=== PATIENT | female | born 1970 | race American Indian/Alaskan Native ===

== ENCOUNTER 2016-10-08 00:59 | Emergency (ER) | payer OTHER, MEDICAID ==
[2016-10-08] MEDS ORDERED: TYLENOL ONE (02:07)
[2016-10-08] MEDS: TYLENOL PO ONE ×2 (02:07→09:16)
[2016-10-08 03:12] LABS: Basophils % (Auto) 0.7 % (0.0-1.8); Eosinophils % (Auto) 1.4 % (0.0-4.3); Hematocrit 27.9 % (30.3-42.9); Hemoglobin 7.8 gm/dl (10.1-14.3); Mean Corpuscular HGB Conc 28 % (30-34); Mean Corpuscular Hemoglobin 21 pg (28-32); Mean Corpuscular Volume 74 fl (79-97); Platelet Count 261 K/mm3 (140-440); Red Blood Count 3.79 M/mm3 (3.65-5.03); Red Cell Distribution Width 20.8 % (13.2-15.2); White Blood Count 7.5 K/mm3 (4.5-11.0)
[2016-10-08 03:25] LABS: Anion Gap 20 mmol/L; BUN/Creatinine Ratio 14.28; Blood Urea Nitrogen 10 mg/dL (7-17); Calcium 9.3 mg/dL (8.4-10.2); Carbon Dioxide 18 mmol/L (22-30); Chloride 97.7 mmol/L (98-107); Glucose 108 mg/dL (65-100); Sodium 132 mmol/L (137-145)
[2016-10-08 04:32] LABS: Bacteria,Urine 1+ /HPF (Negative); Bilirubin,Urine NEG (Negative); Blood,Urine NEG (Negative); Ketones,Urine TR mg/dL (Negative); Leukocyte Esterase,Urine NEG (Negative); Mucus,Urine 3+ /HPF; Nitrite,Urine NEG (Negative)
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
[2016-10-08] MEDS ORDERED: TORADOL IM ONE (08:38)
[2016-10-08 09:06] VITALS: BP 126/79
== END 2016-10-08 09:28 | disposition home or self-care (01) ==
LOC: ED 00:59
DX: S13.4XXA Sprain of ligaments of cervical spine, initial encounter (principal); R51 Headache; M54.9 Dorsalgia, unspecified; E03.9 Hypothyroidism, unspecified; F17.210 Nicotine dependence, cigarettes, uncomplicated; Z88.8 Allergy status to other drugs, medicaments and biological substances; V89.2XXA Person injured in unspecified motor-vehicle accident, traffic, initial encounter; Y93.89 Activity, other specified; Y92.89 Other specified places as the place of occurrence of the external cause; Y99.8 Other external cause status
CPT/HCPCS: 36415; 80048; 81001; 84703; 85025; 99283

== ENCOUNTER 2018-12-16 01:13 | Emergency (ER) | payer MEDICAID ==
[2018-12-16] MEDS ORDERED: HYDROcodone/ACETAMINOPHEN 5-325 MG TAB PO ONE (01:23)
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
[2018-12-16 02:04] LABS: Basophils % (Auto) 0.8 % (0.0-1.8); Eosinophils # (Auto) 0.1 K/mm3 (0.0-0.4); Eosinophils % (Auto) 1.1 % (0.0-4.3); Hematocrit 42.7 % (30.3-42.9); Hemoglobin 13.9 gm/dl (10.1-14.3); Lymphocytes # (Auto) 1.7 K/mm3 (1.2-5.4); Lymphocytes % (Auto) 29.2 % (13.4-35.0); Mean Corpuscular HGB Conc 33 % (30-34); Mean Corpuscular Volume 96 fl (79-97); Monocytes # (Auto) 0.7 K/mm3 (0.0-0.8); Monocytes % (Auto) 12.3 % (0.0-7.3); Platelet Count 248 K/mm3 (140-440); Red Blood Count 4.43 M/mm3 (3.65-5.03); Red Cell Distribution Width 16.2 % (13.2-15.2)
[2018-12-16 02:24] LABS: BUN/Creatinine Ratio 16; Blood Urea Nitrogen 14 mg/dL (7-17); Calcium 9.8 mg/dL (8.4-10.2); Hemolysis Index 0
--- NOTE | 2018-12-16 02:37 | XRay Report ---
CHEST 1 VIEW 12/16/2018 1:51 AM INDICATION / CLINICAL INFORMATION: Chest Pain. COMPARISON: 06/07/13 FINDINGS: SUPPORT DEVICES: None. HEART / MEDIASTINUM: Heart is upper normal size for AP portable technique with left ventricular confi guration. LUNGS / PLEURA: Mild elevation of the right hemidiaphragm is new. Linear atelectasis in the right ayo g base. No acute airspace disease. No pneumothorax. ADDITIONAL FINDINGS: No significant additional findings. IMPRESSION: 1. Right lung base atelectasis. Otherwise, no acute findings. Signer Name: Solomon Scott MD Signed: 12/16/2018 2:32 AM Workstation Name: [id number]
[2018-12-16] MEDS ORDERED: MORPHINE 4 MG/1 ML INJ IV ONE (03:48)
[2018-12-16] MEDS ORDERED: dexAMETHasone 20 MG/5 ML VIAL IV ONE (03:48)
[2018-12-16] MEDS ORDERED: ONDANSETRON 4 MG/2 ML INJ IV ONE (03:49)
[2018-12-16 04:43] VITALS: BP 136/93
== END 2018-12-16 06:00 | disposition home or self-care (01) ==
LOC: ED 01:13
DX: R07.89 Other chest pain (principal); R20.0 Anesthesia of skin; R06.02 Shortness of breath; F17.200 Nicotine dependence, unspecified, uncomplicated; I11.0 Hypertensive heart disease with heart failure; I50.9 Heart failure, unspecified; Z86.2 Personal history of diseases of the blood and blood-forming organs and certain disorders involving the immune mechanism; Z79.899 Other long term (current) drug therapy; Z88.8 Allergy status to other drugs, medicaments and biological substances
CPT/HCPCS: 36415; 71045; 80048; 84484; 85025; 85379; 93005; 93010; 96374; 96375; 99285; J1100; J2270; J2405

== ENCOUNTER 2019-05-11 08:17 | Emergency (ER) | payer MEDICAID ==
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
[2019-05-11 11:00] LABS: Bilirubin,Urine NEG (Negative); Blood,Urine NEG (Negative); Color,Urine Yellow (Yellow); Mucus,Urine FEW /HPF; Protein,Urine <15 mg/dL mg/dL (Negative); Urobilinogen,Urine < 2.0 mg/dL (<2.0)
[2019-05-11 11:01] LABS: Basophils # (Auto) 0.1 K/mm3 (0.0-0.1); Basophils % (Auto) 1.7 % (0.0-1.8); Eosinophils # (Auto) 0.1 K/mm3 (0.0-0.4); Eosinophils % (Auto) 1.5 % (0.0-4.3); Hemoglobin 13.4 gm/dl (10.1-14.3); Lymphocytes # (Auto) 2.2 K/mm3 (1.2-5.4); Lymphocytes % (Auto) 33.3 % (13.4-35.0); Mean Corpuscular HGB Conc 32 % (30-34); Mean Corpuscular Volume 89 fl (79-97); Monocytes # (Auto) 0.6 K/mm3 (0.0-0.8); Monocytes % (Auto) 9.7 % (0.0-7.3); Platelet Count 302 K/mm3 (140-440); Red Blood Count 4.74 M/mm3 (3.65-5.03); Red Cell Distribution Width 19.1 % (13.2-15.2)
[2019-05-11 11:04] LABS: HCG Qualitative,Urine Negative (Negative)
[2019-05-11 11:11] LABS: Alanine Aminotransferase 14 units/L (7-56); Albumin 4.4 g/dL (3.9-5); BUN/Creatinine Ratio 12; Blood Urea Nitrogen 12 mg/dL (7-17); Calcium 9.8 mg/dL (8.4-10.2); Hemolysis Index 20
--- NOTE | 2019-05-11 12:23 | XRay Report ---
CHEST 2 VIEWS INDICATION / CLINICAL INFORMATION: sob and chest pain. COMPARISON: 12/16/2018 FINDINGS: SUPPORT DEVICES: None. HEART / MEDIASTINUM: Upper limits of normal in size LUNGS / PLEURA: There are linear parenchymal opacities noted in the right lung base similar to the pr evious study characteristic of linear atelectasis or scar. Clinical clips are noted. The upper lung zones are clear. .No pneumothorax. ADDITIONAL FINDINGS: No significant additional findings. IMPRESSION: 1. No significant change. Signer Name: Tanvir Linda MD Signed: 05/11/2019 12:19 PM Workstation Name: [id number]
[2019-05-11] MEDS ORDERED: ACETAMINOPHEN 500 MG TAB PO ONE (12:55)
[2019-05-11] MEDS ORDERED: FUROSEMIDE 20 MG TAB PO ONE (12:56)
[2019-05-11 16:29] VITALS: BP 158/103
== END 2019-05-11 17:07 | disposition home or self-care (01) ==
LOC: ED 08:17
DX: I11.0 Hypertensive heart disease with heart failure (principal); I50.9 Heart failure, unspecified; E03.9 Hypothyroidism, unspecified; D64.9 Anemia, unspecified; F17.200 Nicotine dependence, unspecified, uncomplicated; Z98.890 Other specified postprocedural states; Z79.899 Other long term (current) drug therapy; Z88.8 Allergy status to other drugs, medicaments and biological substances
CPT/HCPCS: 36415; 71046; 80053; 81001; 81025; 83880; 84484; 85025; 93005; 93010

== ENCOUNTER 2020-01-03 01:31 | Emergency (ER) | payer MEDICAID ==
[2020-01-03] MEDS ORDERED: ASPIRIN 325 MG TAB PO ONE (03:35)
[2020-01-03 04:08] LABS: Basophils # (Auto) 0.1 K/mm3 (0.0-0.1); Eosinophils # (Auto) 0.1 K/mm3 (0.0-0.4); Eosinophils % (Auto) 1.4 % (0.0-4.3); Hemoglobin 13.5 gm/dl (10.1-14.3); Lymphocytes # (Auto) 2.3 K/mm3 (1.2-5.4); Lymphocytes % (Auto) 38.2 % (13.4-35.0); Mean Corpuscular HGB Conc 34 % (30-34); Mean Corpuscular Volume 87 fl (79-97); Monocytes # (Auto) 0.7 K/mm3 (0.0-0.8); Monocytes % (Auto) 11.5 % (0.0-7.3); Platelet Count 263 K/mm3 (140-440); Red Blood Count 4.61 M/mm3 (3.65-5.03); Red Cell Distribution Width 16.8 % (13.2-15.2)
--- NOTE | 2020-01-03 04:14 | XRay Report ---
CHEST 1 VIEW INDICATION / CLINICAL INFORMATION: Chest Pain. COMPARISON: 05/11/2019 FINDINGS: SUPPORT DEVICES: None. HEART / MEDIASTINUM: No significant abnormality. LUNGS / PLEURA: There is linear scar in the right base. There is elevation of the right hemidiaphragm .. No pneumothorax. ADDITIONAL FINDINGS: No significant additional findings. IMPRESSION: 1. No significant change. Signer Name: Tanvir Linda MD Signed: 01/03/2020 4:10 AM Workstation Name: [id number]
[2020-01-03 04:25] LABS: Blood Urea Nitrogen 12 mg/dL (7-17); Hemolysis Index 5
[2020-01-03 04:27] LABS: BUN/Creatinine Ratio 20
[2020-01-03] MEDS ORDERED: MORPHINE 4 MG/1 ML INJ IV ONE (05:34)
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
[2020-01-03] MEDS ORDERED: traMADol 50 MG TAB PO ONE (07:23)
[2020-01-03] MEDS ORDERED: ONDANSETRON 4 MG ODT TAB PO ONE (07:23)
[2020-01-03] MEDS ORDERED: amLODIPine 5 MG TAB PO ONE (07:23)
[2020-01-03 08:53] VITALS: BP 146/89
== END 2020-01-03 09:45 | disposition home or self-care (01) ==
LOC: ED 01:31
DX: E03.9 Hypothyroidism, unspecified (principal); D64.9 Anemia, unspecified; R51.9 Headache, unspecified; R07.89 Other chest pain; I11.0 Hypertensive heart disease with heart failure; I50.9 Heart failure, unspecified; F17.200 Nicotine dependence, unspecified, uncomplicated; Z88.8 Allergy status to other drugs, medicaments and biological substances; Z79.899 Other long term (current) drug therapy; Z98.890 Other specified postprocedural states
CPT/HCPCS: 36415; 71045; 80048; 84443; 84484; 85025; 93005; 96374; 99284; J2270; Q0162

== ENCOUNTER 2020-02-23 17:46 | Emergency (ER) | payer MEDICAID ==
[2020-02-23 19:21] VITALS: BP 148/89
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
[2020-02-23 19:52] LABS: Basophils # (Auto) 0.1 K/mm3 (0.0-0.1); Basophils % (Auto) 1.4 % (0.0-1.8); Eosinophils # (Auto) 0.1 K/mm3 (0.0-0.4); Eosinophils % (Auto) 1.7 % (0.0-4.3); Lymphocytes # (Auto) 2.6 K/mm3 (1.2-5.4); Lymphocytes % (Auto) 49.2 % (13.4-35.0); Mean Corpuscular HGB Conc 34 % (30-34); Mean Corpuscular Volume 89 fl (79-97); Monocytes # (Auto) 0.4 K/mm3 (0.0-0.8); Monocytes % (Auto) 8.5 % (0.0-7.3); Platelet Count 252 K/mm3 (140-440); Red Blood Count 4.63 M/mm3 (3.65-5.03); Red Cell Distribution Width 19.2 % (13.2-15.2)
[2020-02-23 20:04] LABS: Alanine Aminotransferase 27 units/L (7-56); BUN/Creatinine Ratio 9; Blood Urea Nitrogen 7 mg/dL (7-17); Calcium 9.8 mg/dL (8.4-10.2); Hemolysis Index 12
--- NOTE | 2020-02-23 20:05 | Cat Scan Report ---
CT head/brain wo con INDICATION / CLINICAL INFORMATION: 49 years Female; headache, blurry vision, dizziness. TECHNIQUE: Routine CT head without contrast. All CT scans at this location are performed using CT dos e reduction for ALARA by means of automated exposure control. COMPARISON: None. FINDINGS: BRAIN / INTRACRANIAL CONTENTS: No acute hemorrhage, mass effect, midline shift, hydrocephalus, or acu te, large territorial infarct. No signs of significant atrophy or chronic infarct. Mild, nonspecific white matter disease seen, with most prevalent findings in the periventricular and deep white matter near the atrium of the left lateral ventricle. CRANIOCERVICAL JUNCTION: No significant abnormality. ORBITS: No significant abnormality of visualized orbits. SINUSES / MASTOIDS: No significant abnormality in the visualized paranasal sinuses or mastoid air goran ls. ADDITIONAL FINDINGS: None. IMPRESSION: 1. No focal mass, hemorrhage, hydrocephalus, or acute, large territorial infarct. Signer Name: Checo Dumas MD, III Signed: 02/23/2020 8:01 PM Workstation Name: [facility]ENTERNeozoneATLANTIC[id number]
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
[2020-02-23 21:21] LABS: Bilirubin,Urine NEG (Negative); Blood,Urine NEG (Negative); Color,Urine Yellow (Yellow); Mucus,Urine 3+ /HPF; Protein,Urine <15 mg/dL mg/dL (Negative); Urobilinogen,Urine < 2.0 mg/dL (<2.0)
[2020-02-23] MEDS ORDERED: BUTALB/ACETAMINOPHEN/CAFFEINE TAB PO ONE (21:47)
[2020-02-23] MEDS ORDERED: MECLIZINE 25 MG TAB PO ONE (21:47)
[2020-02-23] MEDS ORDERED: ONDANSETRON 4 MG ODT TAB PO ONE (23:02)
[2020-02-23] MEDS ORDERED: ONDANSETRON 4 MG ODT TAB ONE (23:02)
[2020-02-23] MEDS ORDERED: DEXAMETHASONE 4 MG TAB PO ONE (23:35)
== END 2020-02-23 23:50 | disposition home or self-care (01) ==
LOC: ED 17:46
DX: H81.10 Benign paroxysmal vertigo, unspecified ear (principal); G44.309 Post-traumatic headache, unspecified, not intractable; Z76.0 Encounter for issue of repeat prescription; I11.0 Hypertensive heart disease with heart failure; I50.9 Heart failure, unspecified; F17.200 Nicotine dependence, unspecified, uncomplicated; Z98.890 Other specified postprocedural states; Z79.899 Other long term (current) drug therapy; Z88.8 Allergy status to other drugs, medicaments and biological substances
CPT/HCPCS: 36415; 70450; 80053; 81001; 82550; 83735; 83880; 84439; 84443; 84484; 85025; 85379; 93005; 99284; J8540; Q0162

== ENCOUNTER 2020-06-19 09:41 | Emergency (ER) | payer MEDICAID ==
[2020-06-19] MEDS ORDERED: ASPIRIN 325 MG TAB PO ONE (09:50)
--- NOTE | 2020-06-19 10:23 | XRay Report ---
CHEST 2 VIEWS INDICATION / CLINICAL INFORMATION: chest pain. COMPARISON: 01/03/2020 FINDINGS: SUPPORT DEVICES: None. HEART / MEDIASTINUM: No significant abnormality. LUNGS / PLEURA: Mild increased density in the right lower lung with elevation right hemidiaphragm. No pneumothorax. ADDITIONAL FINDINGS: No significant additional findings. IMPRESSION: 1. Right lower lung atelectasis persists. Mild elevation the right hemidiaphragm. Signer Name: Ronan Ventura MD Signed: 06/19/2020 10:19 AM Workstation Name: [employer]
[2020-06-19 10:59] LABS: Basophils % (Auto) 0.8 % (0.0-1.8); Eosinophils # (Auto) 0.1 K/mm3 (0.0-0.4); Eosinophils % (Auto) 1.2 % (0.0-4.3); Hematocrit 40.2 % (30.3-42.9); Hemoglobin 12.9 gm/dl (10.1-14.3); Lymphocytes # (Auto) 1.7 K/mm3 (1.2-5.4); Lymphocytes % (Auto) 31.7 % (13.4-35.0); Mean Corpuscular HGB Conc 32 % (30-34); Mean Corpuscular Volume 95 fl (79-97); Monocytes # (Auto) 0.5 K/mm3 (0.0-0.8); Monocytes % (Auto) 8.8 % (0.0-7.3); Platelet Count 250 K/mm3 (140-440); Red Blood Count 4.25 M/mm3 (3.65-5.03); Red Cell Distribution Width 17.5 % (13.2-15.2)
[2020-06-19 11:15] LABS: Alanine Aminotransferase 39 units/L (7-56); Albumin 3.8 g/dL (3.9-5); BUN/Creatinine Ratio 10; Blood Urea Nitrogen 8 mg/dL (7-17); Calcium 9.5 mg/dL (8.4-10.2); Hemolysis Index 1
[2020-06-19] MEDS ORDERED: LOSARTAN 50 MG TAB PO ONE (21:13)
[2020-06-19] MEDS ORDERED: FUROSEMIDE 20 MG TAB PO ONE (21:13)
[2020-06-19] MEDS ORDERED: HYDROcodone/ACETAMINOPHEN 5-325 MG TAB PO ONE (21:13)
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
[2020-06-19 22:14] VITALS: BP 165/109
--- NOTE | 2020-06-20 12:04 | Electrocardiograph Report ---
[facility] Test Date: 2020-06-19 Test Time: 09:57:26 Pat Name: JESUS ESTEVES Department: Room: Gender: F [employer]: TIFFANIE : 1970 Requested By: ED DOC Order Number: [id number] Reading MD: Michel Yu Measurements Intervals [place] Rate: 88 P: 50 [place]: 158 QRS: 81 QRSD: 74 T: 44 QT: 395 QTc: 479 Interpretive Statements Sinus rhythm Probable left atrial enlargement No previous ECG available for comparison Electronically Signed On 06-20-2020 12:04:28 EDT by Michel Yu
== END 2020-06-19 22:51 | disposition home or self-care (01) ==
LOC: ED 09:41
DX: I11.0 Hypertensive heart disease with heart failure (principal); I50.9 Heart failure, unspecified; F17.200 Nicotine dependence, unspecified, uncomplicated; Z98.890 Other specified postprocedural states; Z79.899 Other long term (current) drug therapy
CPT/HCPCS: 36415; 71046; 80053; 84484; 85025; 93005

== ENCOUNTER 2021-01-07 01:01 | Inpatient (IN) | payer MEDICAID ==
[2021-01-07] MEDS ORDERED: MORPHINE 4 MG/1 ML INJ IM ONE (01:40)
[2021-01-07] MEDS ORDERED: ONDANSETRON 4 MG/2 ML INJ IV ONE (01:40)
[2021-01-07] MEDS ORDERED: MORPHINE 4 MG/1 ML INJ IV ONE (01:41)
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
--- NOTE | 2021-01-07 02:43 | XRay Report ---
CHEST 2 VIEWS INDICATION / CLINICAL INFORMATION: Chest Pain. COMPARISON: 06/19/2020 FINDINGS: SUPPORT DEVICES: None. HEART / MEDIASTINUM: No significant abnormality. LUNGS / PLEURA: Elevation right hemidiaphragm. No pneumothorax. ADDITIONAL FINDINGS: No significant additional findings. IMPRESSION: 1. No acute findings. Signer Name: Ronan Ventrua MD Signed: 01/07/2021 2:39 AM Workstation Name: [email or web address]
--- NOTE | 2021-01-07 03:10 | Cat Scan Report ---
CT HEAD WITHOUT CONTRAST INDICATION / CLINICAL INFORMATION: Headache, right eye blurred vision,. TECHNIQUE: All CT scans at this location are performed using CT dose reduction for ALARA by means of automated e xposure control. COMPARISON: 02/23/2020 FINDINGS: No acute intracranial hemorrhage. Ventricles are normal in size without midline shift or mass effect. Visualized orbits appear normal. No acute bone findings are seen. Elder-white matter differentiation appears normal. ADDITIONAL FINDINGS: None. IMPRESSION: 1. No acute intracranial abnormality. Signer Name: Ronan Ventura MD Signed: 01/07/2021 3:06 AM Workstation Name: [email or web address]
[2021-01-07 03:18] LABS: Basophils # (Auto) 0.1 K/mm3 (0.0-0.1); Basophils % (Auto) 0.9 % (0.0-1.8); Eosinophils # (Auto) 0.1 K/mm3 (0.0-0.4); Eosinophils % (Auto) 1.6 % (0.0-4.3); Hematocrit 41.3 % (30.3-42.9); Hemoglobin 13.4 gm/dl (10.1-14.3); Lymphocytes % (Auto) 28.4 % (13.4-35.0); Mean Corpuscular HGB Conc 33 % (30-34); Mean Corpuscular Volume 99 fl (79-97); Monocytes # (Auto) 0.6 K/mm3 (0.0-0.8); Monocytes % (Auto) 7.7 % (0.0-7.3); Platelet Count 239 K/mm3 (140-440); Red Blood Count 4.16 M/mm3 (3.65-5.03); Red Cell Distribution Width 16.1 % (13.2-15.2)
[2021-01-07] MEDS ORDERED: diphenhydrAMINE 50 MG/ML VIAL IV ONE (03:29)
[2021-01-07] MEDS ORDERED: METOCLOPRAMIDE 10 MG/2 ML INJ IV ONE (03:29)
[2021-01-07 03:33] LABS: Alanine Aminotransferase 52 units/L (7-56); Albumin 3.6 g/dL (3.9-5); BUN/Creatinine Ratio 12; Blood Urea Nitrogen 11 mg/dL (7-17); Calcium 9.9 mg/dL (8.4-10.2); Hemolysis Index 14
[2021-01-07 04:11] LABS: ABG Base Excess 2.7 mmol/L (-2.0-3.0); ABG HCO3 29.5 mmol/L (20.0-26.0); ABG PCO2 54.2 mm Hg; ABG PH 7.353 pH Units (7.350-7.450); ABG PO2 59.8 mm Hg (80.0-90.0)
[2021-01-07] MEDS ORDERED: ACETAMINOPHEN 325 MG TAB PO PRN (05:40)
[2021-01-07] MEDS ORDERED: ONDANSETRON 4 MG/2 ML INJ IV PRN (05:40)
[2021-01-07] MEDS ORDERED: NITROGLYCERIN 0.4 MG TAB SUBL SL PRN (05:40)
--- NOTE | 2021-01-07 05:53 | History and Physical Report ---
History of Present Illness Date of examination: 01/07/21 Date of admission: 01/07/21 Chief complaint: Chest pain Left arm pain headache History of present illness: 50-year-old female with past medical history of tobacco abuse, hypothyroidism, anemia chronic disease, anxiety disorder, and CHF presents to the hospital with complaints of left-sided chest pain, left arm pain and swelling, frontal headache, and right eye blurred vision for 3 days. Symptoms have been constant. Patient states she first wakes up she sees colored spots which then resolved then has persistent right blurred vision. Constant frontal headache reported. Mild light sensitivity. No nausea, vomiting, or focal weakness. Patient also have a constant sharp left-sided chest pain worse with palpation. Patient also have the pain to the entire left arm from the shoulder downward and feels like her forearm is swollen. Pain also reproducible with palpation. Shortness of breath reported. Patient compliant with medications. Denies history of PE/DVT, calf tenderness, leg edema, cough, fever, and is unvaccinated for Covid. Patient is scheduled for outpatient stress test in 3 days No focal neurological deficit appreciated on examination. CT head unremarkable. Chest x-ray unremarkable. No signs of acute ischemia EKG. Troponin negative. D-dimer negative for low pretest probability for pulmonary embolism Admitting the patient with a diagnosis of chest pain and decreased vision of the right eye. We consulted neurology as well as cardiology Med rec is done Past History Past Medical History: anemia, heart failure, hypertension, hyperlipidemia, hypothyroidism, other (Smoker) Medications and Allergies Allergies Allergy/AdvReac Type Severity Reaction Status Date / Time naproxen Allergy Swelling Verified 01/07/21 01:12 Home Medications Medication Instructions Recorded Confirmed Last Taken Type Acetaminophen [Acetaminophen TAB] 650 mg PO Q4H PRN #30 tablet 07/25/15 02/21/16 Unknown Rx Docusate Sodium [Colace CAP] 100 mg PO BID #60 capsule 07/25/15 02/21/16 Unknown Rx Ferrous Sulfate [Feosol 325 MG tab] 325 mg PO TID #30 tablet 07/25/15 02/21/16 Unknown Rx Folic Acid/Vit B Comp W-C [Renal 1 cap PO QDAY #30 capsule 07/25/15 02/21/16 Unknown Rx Caps] Acetaminophen [Acetaminophen TAB] 650 mg PO Q6HR PRN #20 tablet 10/08/16 Unknown Rx Cyclobenzaprine [Flexeril] 10 mg PO TID PRN #15 tablet 10/08/16 Unknown Rx Prednisone [predniSONE 10 mg 10 mg PO .TAPER #1 tab.ds.pk 12/16/18 Unknown Rx (6-Day Pack, 21 Tabs)] Levothyroxine [Synthroid] 225 mcg PO QAM 20 01/03/20 Unknown History traMADoL [Ultram 50 MG tab] 50 mg PO Q6HR PRN #10 tablet 01/03/20 Unknown Rx Escitalopram [Lexapro] 10 mg PO DAILY 30 Days #30 tablet 02/23/20 Unknown Rx FLUoxetine [PROzac] 10 mg PO DAILY 30 Days #30 tablet 02/23/20 Unknown Rx Furosemide [Lasix TAB] 40 mg PO QDAY 30 Days #30 tab 02/23/20 Unknown Rx Levothyroxine Sodium [Synthroid] 200 mcg PO QAM 30 Days #30 tablet 02/23/20 Unknown Rx Levothyroxine [Synthroid] 25 mcg PO QAM 30 Days #30 tablet 02/23/20 Unknown Rx Losartan/Hydrochlorothiazide 1 each PO DAILY 30 Days #30 tablet 02/23/20 Unknown Rx [Losartan-Hctz 50-12.5 mg Tab] amLODIPine 5 mg PO ONCE 30 Days #30 tablet 02/23/20 Unknown Rx Levothyroxine Sodium 200 mcg PO DAILY 90 Days #90 06/19/20 Unknown Rx [Levothyroxine] capsule Losartan/Hydrochlorothiazide 1 each PO DAILY 90 Days #90 tablet 06/19/20 Unknown Rx [Losartan-Hctz 100-25 mg Tab] amLODIPine 10 mg PO DAILY 90 Days #90 tab 06/19/20 Unknown Rx Review of Systems All systems: negative Cardiovascular: chest pain Musculoskeletal: other (Left arm pain and swelling) Neurological: other (frontal headache, and right eye blurred vision for 3 days) Exam - Constitutional Vitals: Temp Pulse Resp BP Pulse Ox 97.4 F L 98 H 26 H 108/65 97 01/07/21 01:13 01/07/21 05:31 01/07/21 05:31 01/07/21 05:31 01/07/21 05:01 General appearance: Present: no acute distress, well-nourished - EENT Eyes: Present: PERRL ENT: hearing intact, clear oral mucosa - Neck Neck: Present: supple, normal ROM - Respiratory Respiratory effort: normal Respiratory: bilateral: diminished - Cardiovascular Heart Sounds: Present: S1 & S2. Absent: rub, click - Extremities Extremities: pulses symmetrical, No edema Peripheral Pulses: within normal limits - Abdominal General gastrointestinal: Present: soft, non-tender, non-distended, normal bowel sounds Female genitourinary: Present: normal - Integumentary Integumentary: Present: clear, warm, dry - Musculoskeletal Musculoskeletal: gait normal, strength equal bilaterally - Psychiatric Psychiatric: appropriate mood/affect, intact judgment & insight - Neurologic Neurologic: CNII-XII intact, moves all extremities HEART Score - HEART Score EKG: Normal Age: 45-65 Risk factors: > 3 risk factors or hx of atherosclerotic disease Troponin: Troponin T < 0.010 ng/mL (0.00-0.029) 01/07/21 02:55 Troponin: < normal limit Results - Labs CBC & Chem 7: 01/07/21 02:55 01/07/21 02:55 Labs: Laboratory Last Values WBC 7.2 K/mm3 (4.5-11.0) 01/07/21 02:55 RBC 4.16 M/mm3 (3.65-5.03) 01/07/21 02:55 Hgb 13.4 gm/dl (10.1-14.3) 01/07/21 02:55 Hct 41.3 % (30.3-42.9) 01/07/21 02:55 MCV 99 fl (79-97) H 01/07/21 02:55 MCH 32 pg (28-32) 01/07/21 02:55 MCHC 33 % (30-34) 01/07/21 02:55 RDW 16.1 % (13.2-15.2) H 01/07/21 02:55 Plt Count 239 K/mm3 (140-440) 01/07/21 02:55 Lymph % (Auto) 28.4 % (13.4-35.0) 01/07/21 02:55 Bulloch % (Auto) 7.7 % (0.0-7.3) H 01/07/21 02:55 Eos % (Auto) 1.6 % (0.0-4.3) 01/07/21 02:55 Baso % (Auto) 0.9 % (0.0-1.8) 01/07/21 02:55 Lymph # (Auto) 2.0 K/mm3 (1.2-5.4) 01/07/21 02:55 Bulloch # (Auto) 0.6 K/mm3 (0.0-0.8) 01/07/21 02:55 Eos # (Auto) 0.1 K/mm3 (0.0-0.4) 01/07/21 02:55 Baso # (Auto) 0.1 K/mm3 (0.0-0.1) 01/07/21 02:55 Seg Neutrophils % 61.4 % (40.0-70.0) 01/07/21 02:55 Seg Neutrophils # 4.4 K/mm3 (1.8-7.7) 01/07/21 02:55 D-Dimer 142.62 ng/mlDDU (0-234) 01/07/21 02:55 ABG pH 7.353 pH Units (7.350-7.450) 01/07/21 03:33 ABG pCO2 54.2 mm Hg 01/07/21 03:33 ABG pO2 59.8 mm Hg (80.0-90.0) L 01/07/21 03:33 ABG HCO3 29.5 mmol/L (20.0-26.0) H 01/07/21 03:33 ABG O2 Saturation Not Reportable 01/07/21 03:33 ABG O2 Content 17.0 (0.0-44) 01/07/21 03:33 ABG Base Excess 2.7 mmol/L (-2.0-3.0) 01/07/21 03:33 ABG Hemoglobin 13.5 gm/dl (12.0-16.0) 01/07/21 03:33 ABG Carboxyhemoglobin Not Reportable 01/07/21 03:33 ABG Methemoglobin Not Reportable 01/07/21 03:33 Oxyhemoglobin Not Reportable 01/07/21 03:33 FiO2 21 % 01/07/21 03:33 Sodium 140 mmol/L (137-145) 01/07/21 02:55 Potassium 3.6 mmol/L (3.6-5.0) 01/07/21 02:55 Chloride 101.0 mmol/L (98-107) 01/07/21 02:55 Carbon Dioxide 26 mmol/L (22-30) 01/07/21 02:55 Anion Gap 17 mmol/L 01/07/21 02:55 BUN 11 mg/dL (7-17) 01/07/21 02:55 Creatinine 0.9 mg/dL (0.6-1.2) 01/07/21 02:55 Estimated GFR > 60 ml/min 01/07/21 02:55 BUN/Creatinine Ratio 12 % 01/07/21 02:55 Glucose 113 mg/dL (65-100) H 01/07/21 02:55 Calcium 9.9 mg/dL (8.4-10.2) 01/07/21 02:55 Total Bilirubin 0.20 mg/dL (0.1-1.2) 01/07/21 02:55 AST 98 units/L (5-40) H 01/07/21 02:55 ALT 52 units/L (7-56) 01/07/21 02:55 Alkaline Phosphatase 97 units/L (35-129) 01/07/21 02:55 Troponin T < 0.010 ng/mL (0.00-0.029) 01/07/21 02:55 NT-Pro-B Natriuret Pep 55.51 pg/mL (0-900) 01/07/21 02:55 Total Protein 7.3 g/dL (6.3-8.2) 01/07/21 02:55 Albumin 3.6 g/dL (3.9-5) L 01/07/21 02:55 Albumin/Globulin Ratio 1.0 % 01/07/21 02:55 - Imaging and Cardiology Chest x-ray: report reviewed CT Scan - head: report reviewed Assessment and Plan VTE prophylaxis?: Chemical Plan of care discussed with patient/family: Yes - Patient Problems (1) Acute coronary syndrome Current Visit: Yes Status: Acute Plan to address problem: Admit the patient to the medical telemetry. Aspirin 325 mg p.o. daily. Lipitor 40 mg p.o. daily. Nitroglycerin as needed. We will do the serial cardiac enzymes. Echocardiogram. Cardiology consult (2) Decreased vision of right eye Current Visit: Yes Status: Acute Plan to address problem: Aspirin 325 mg p.o. daily. Lipitor 40 mg p.o. daily. We will do the serial cardiac enzymes. Echocardiogram. PT OT any speech evaluation. Neurology consult (3) Headache Current Visit: Yes Status: Acute Plan to address problem: Tylenol 650 mg p.o. every 6 hours as needed. We will continue the home medication (4) Hypoxia Current Visit: Yes Status: Acute Plan to address problem: Oxygen via nasal cannula 3 to per minute. DuoNeb by nebulizer every 4 hours. Albuterol via nebulizer every 4 hours as needed (5) Smoker Current Visit: Yes Status: Acute Plan to address problem: We counseled regarding quitting smoking. We continue home medication (6) Hypothyroidism Current Visit: No Status: Acute Qualifiers: Hypothyroidism type: unspecified Qualified Code(s): E03.9 - Hypothyroidism, unspecified Plan to address problem: Levothyroxine 25 mcg p.o. every morning. We will monitor the patient closely. Outpatient follow-up with manager of corporate communications (7) Symptomatic anemia Current Visit: No Status: Acute Plan to address problem: Hemoglobin is a stable we will continue the home medication (8) DVT prophylaxis Current Visit: Yes Status: Acute Plan to address problem: Heparin 5000 units subcu every 8 hours for DVT prophylaxis. Pepcid 20 mg p.o. twice daily for GI prophylaxis. Patient is a full code
[2021-01-07] MEDS: HEPARIN 5,000 UNIT/1 ML VIAL SUB-Q SCH ×3 (05:59→21:55)
[2021-01-07] MEDS: LEVOTHYROXINE 25 MCG TAB PO SCH (06:01)
[2021-01-07] MEDS: LEVOTHYROXINE 100 MCG TAB PO SCH (06:01)
[2021-01-07 07:39] LABS: Basophils # (Auto) 0.1 K/mm3 (0.0-0.1); Basophils % (Auto) 1.3 % (0.0-1.8); Eosinophils # (Auto) 0.1 K/mm3 (0.0-0.4); Eosinophils % (Auto) 1.9 % (0.0-4.3); Hematocrit 41.5 % (30.3-42.9); Hemoglobin 13.2 gm/dl (10.1-14.3); Lymphocytes # (Auto) 2.5 K/mm3 (1.2-5.4); Lymphocytes % (Auto) 32.6 % (13.4-35.0); Mean Corpuscular HGB Conc 32 % (30-34); Mean Corpuscular Volume 99 fl (79-97); Monocytes # (Auto) 0.6 K/mm3 (0.0-0.8); Monocytes % (Auto) 8.1 % (0.0-7.3); Platelet Count 240 K/mm3 (140-440); Red Blood Count 4.19 M/mm3 (3.65-5.03); Red Cell Distribution Width 16.1 % (13.2-15.2)
[2021-01-07] MEDS: HYDROmorphone 1 MG/1 ML INJ IV PRN (07:57)
[2021-01-07] MEDS: FERROUS SULFATE 325 MG TAB PO SCH ×3 (07:58→21:56)
[2021-01-07 07:59] LABS: BUN/Creatinine Ratio 13; Blood Urea Nitrogen 12 mg/dL (7-17); Calcium 9.7 mg/dL (8.4-10.2); Hemolysis Index 24
[2021-01-07] MEDS ORDERED: MORPHINE 2 MG/1 ML INJ IV SCH (08:30)
[2021-01-07] MEDS ORDERED: NON-FORMULARY EACH (Losartan/Hydrochlorothiazide [Losartan-Hctz 100-25 Mg Tab] 1 EACH Tabl PO SCH (10:00)
[2021-01-07] MEDS ORDERED: FUROSEMIDE 40 MG TAB PO SCH (10:00)
[2021-01-07] MEDS ORDERED: LEVOTHYROXINE SODIUM 200 MCG PO SCH (10:00)
[2021-01-07] MEDS: FLUoxetine 10 MG TAB PO SCH (10:51)
[2021-01-07] MEDS: LOSARTAN 50 MG TAB PO SCH (10:51)
[2021-01-07] MEDS: amLODIPine 10 MG TAB PO SCH (10:52)
[2021-01-07] MEDS: hydroCHLOROthiazide 25 MG TAB PO SCH (10:52)
[2021-01-07] MEDS: DOCUSATE SODIUM 100 MG CAP PO SCH ×2 (10:52→21:56)
[2021-01-07] MEDS: FAMOTIDINE 20 MG/2 ML INJ IV SCH ×2 (10:53→21:55)
[2021-01-07] MEDS ORDERED: KETOROLAC 30 MG/1 ML INJ IV ONE (11:17)
[2021-01-07] MEDS ORDERED: LACTATED RINGERS 1,000 ML IV ONE (11:26)
[2021-01-07] MEDS ORDERED: PROCHLORPERAZINE MALEATE 10 MG TAB PO NR (11:30)
[2021-01-07] MEDS: ESCITALOPRAM 10 MG TAB PO SCH (11:40)
[2021-01-07] MEDS: FOLIC ACID/VIT B COMP W-C 1 MG (RENAL CAPS) PO SCH (11:40)
[2021-01-07] MEDS ORDERED: HYDROmorphone 1 MG/1 ML INJ IV NR (12:00)
--- NOTE | 2021-01-07 12:07 | Magnetic Resonance Report ---
MRI BRAIN WITHOUT CONTRAST INDICATION / CLINICAL INFORMATION: stroke, lt sided weakness. TECHNIQUE: Multisequence, multiplanar images were obtained. COMPARISON: CT head dated 01/07/2021 FINDINGS: CEREBRAL and CEREBELLAR HEMISPHERES: No evidence of mass or mass effect. No midline shift. No acute hemorrhage. No diffusion restriction to suggest acute infarct. No extra-axial fluid collection. M ild to moderate T2 signal abnormalities in the periventricular and subcortical white matter is identi fied consistent with chronic microvascular ischemic disease. No chronic infarct. VENTRICLES: Normal in size and configuration for age. VISUALIZED ORBITS: No significant abnormality. VISUALIZED PARANASAL SINUSES: No significant abnormality. ADDITIONAL FINDINGS: None. IMPRESSION: No acute intracranial abnormality is appreciated. 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 Signer Name: Tony Jeong Jr, MD Signed: 01/07/2021 12:03 PM Workstation Name: [id number]
--- NOTE | 2021-01-07 12:09 | Magnetic Resonance Report ---
MRA HEAD WITHOUT CONTRAST HISTORY: Stroke, left-sided weakness COMPARISON: None. TECHNIQUE: Routine MRA of the head is performed. 3-D/MIP reformats postprocessed. CONTRAST: None. FINDINGS: Intracranial vertebral arteries: No significant abnormality. Basilar artery: No significant abnormality. Posterior cerebral arteries: No significant abnormality. Intracranial internal carotid arteries: No significant abnormality. Anterior cerebral arteries: No significant abnormality. Middle cerebral arteries: No significant abnormality. Additional findings: The left vertebral artery is dominant. IMPRESSION: 1. No significant abnormality. Signer Name: Tony Jeong Jr, MD Signed: 01/07/2021 12:04 PM Workstation Name: [id number]
--- NOTE | 2021-01-07 13:25 | Consultation ---
History of Present Illness Consult date: 01/07/21 Consult reason: chest pain History of present illness: The patient is a 50-year-old woman with obesity and chronic hypertension. She also has chronic atypical chest pain for which she was recently referred to a fur repairer, and has been in the process of undergoing cardiac work-up with a stress test planned for next week. She presented to the emergency room at this time, complains of a stabbing sensation in her left chest, which was not exertional, but recurrent. This prompted her to come to the emergency room. In addition, she reports some numbness on the left side with blurry vision in the right eye and headache. She states that there was no hypertension associated with her symptoms, and her blood pressure in the emergency room was normal at 110 systolic. Further ER work-up included an echocardiogram that showed normal sinus rhythm, normal ECG. The serial troponin levels were negative. However, on the echoca rdiogram, there was moderate cardiomegaly with clear lungs. Past History Past Medical History: anemia, hypertension, hyperlipidemia, hypothyroidism, other (Smoker) Medications and Allergies Allergies Allergy/AdvReac Type Severity Reaction Status Date / Time naproxen Allergy Severe Angioedema Verified 01/07/21 11:31 Home Medications Medication Instructions Recorded Confirmed Last Taken Type Acetaminophen [Acetaminophen TAB] 650 mg PO Q4H PRN #30 tablet 07/25/15 02/21/16 Unknown Rx Docusate Sodium [Colace CAP] 100 mg PO BID #60 capsule 07/25/15 02/21/16 Unknown Rx Ferrous Sulfate [Feosol 325 MG tab] 325 mg PO TID #30 tablet 07/25/15 02/21/16 Unknown Rx Folic Acid/Vit B Comp W-C [Renal 1 cap PO QDAY #30 capsule 07/25/15 02/21/16 Unknown Rx Caps] Acetaminophen [Acetaminophen TAB] 650 mg PO Q6HR PRN #20 tablet 10/08/16 Unknown Rx Cyclobenzaprine [Flexeril] 10 mg PO TID PRN #15 tablet 10/08/16 Unknown Rx Prednisone [predniSONE 10 mg 10 mg PO .TAPER #1 tab.ds.pk 12/16/18 Unknown Rx (6-Day Pack, 21 Tabs)] Levothyroxine [Synthroid] 225 mcg PO QAM 01/03/20 01/03/20 Unknown History traMADoL [Ultram 50 MG tab] 50 mg PO Q6HR PRN #10 tablet 01/03/20 Unknown Rx Escitalopram [Lexapro] 10 mg PO DAILY 30 Days #30 tablet 02/23/20 Unknown Rx FLUoxetine [PROzac] 10 mg PO DAILY 30 Days #30 tablet 02/23/20 Unknown Rx Furosemide [Lasix TAB] 40 mg PO QDAY 30 Days #30 tab 02/23/20 Unknown Rx Levothyroxine Sodium [Synthroid] 200 mcg PO QAM 30 Days #30 tablet 02/23/20 Unknown Rx Levothyroxine [Synthroid] 25 mcg PO QAM 30 Days #30 tablet 02/23/20 Unknown Rx Losartan/Hydrochlorothiazide 1 each PO DAILY 30 Days #30 tablet 02/23/20 Unknown Rx [Losartan-Hctz 50-12.5 mg Tab] amLODIPine 5 mg PO ONCE 30 Days #30 tablet 02/23/20 Unknown Rx Levothyroxine Sodium 200 mcg PO DAILY 90 Days #90 06/19/20 Unknown Rx [Levothyroxine] capsule Losartan/Hydrochlorothiazide 1 each PO DAILY 90 Days #90 tablet 06/19/20 Unknown Rx [Losartan-Hctz 100-25 mg Tab] amLODIPine 10 mg PO DAILY 90 Days #90 tab 06/19/20 Unknown Rx Active Meds: Active Medications Acetaminophen (Acetaminophen 325 Mg Tab) 650 mg PO Q4H PRN PRN Reason: Pain MILD(1-3)/Fever >100.5/ROSARIO Amlodipine Besylate (Amlodipine 10 Mg Tab) 10 mg PO DAILY [facility] Last Admin: 01/07/21 10:52 Dose: 10 mg Documented by: Atorvastatin Calcium (Atorvastatin 40 Mg Tab) 40 mg PO QHS [facility] Cyclobenzaprine HCl (Cyclobenzaprine 10 Mg Tab) 10 mg PO TID PRN PRN Reason: Muscle Spasm Docusate Sodium (Docusate Sodium 100 Mg Cap) 100 mg PO BID [facility] Last Admin: 01/07/21 10:52 Dose: 100 mg Documented by: Escitalopram Oxalate (Escitalopram 10 Mg Tab) 10 mg PO DAILY [facility] Last Admin: 01/07/21 11:40 Dose: 10 mg Documented by: Famotidine (Famotidine 20 Mg/2 Ml Inj) 20 mg IV BID [facility] Last Admin: 01/07/21 10:53 Dose: 20 mg Documented by: Ferrous Sulfate (Ferrous Sulfate 325 Mg Tab) 325 mg PO TID [facility] Last Admin: 01/07/21 07:58 Dose: 325 mg Documented by: Fluoxetine HCl (Fluoxetine 10 Mg Tab) 10 mg PO DAILY [facility] Last Admin: 01/07/21 10:51 Dose: 10 mg Documented by: Furosemide (Furosemide 20 Mg Tab) 40 mg PO QDAY [facility] Heparin Sodium (Porcine) (Heparin 5,000 Unit/1 Ml Vial) 5,000 unit SUB-Q Q8HR [facility] Last Admin: 01/07/21 05:59 Dose: 5,000 unit Documented by: Hydrochlorothiazide (Hydrochlorothiazide 25 Mg Tab) 25 mg PO QDAY [facility] Last Admin: 01/07/21 10:52 Dose: 25 mg Documented by: Hydromorphone HCl (Hydromorphone 1 Mg/1 Ml Inj) 0.5 mg IV Q3H PRN PRN Reason: Pain , Severe (7-10) Last Admin: 01/07/21 07:57 Dose: 0.5 mg Documented by: Dextrose/Sodium Chloride (D5ns) 1,000 mls @ 100 mls/hr IV DIRECT [facility] Lactated Ringer's (Lactated Ringers) 1,000 mls @ 500 mls/hr IV BOLUS ONE Stop: 01/07/21 13:25 Last Admin: 01/07/21 12:03 Dose: 500 mls/hr Documented by: Labetalol HCl (Labetalol 20 Mg/4 Ml Inj) 10 mg IV Q5MIN PRN PRN Reason: to maintain SBP < 180 Levothyroxine Sodium (Levothyroxine 25 Mcg Tab) 25 mcg PO QAM@0600 [facility] Last Admin: 01/07/21 06:01 Dose: 25 mcg Documented by: Levothyroxine Sodium (Levothyroxine 100 Mcg Tab) 200 mcg PO DAILY@0600 [facility] Last Admin: 01/07/21 06:01 Dose: 200 mcg Documented by: Losartan Potassium (Losartan 50 Mg Tab) 100 mg PO QDAY [facility] Last Admin: 01/07/21 10:51 Dose: 100 mg Documented by: Multivit/Ca Carb/B Cmplx/FA/Prenat (Folic Acid/Vit B Comp W-C 1 Mg (Renal Caps)) 1 cap PO QDAY [facility] Last Admin: 01/07/21 11:40 Dose: 1 cap Documented by: Nitroglycerin (Nitroglycerin 0.4 Mg Tab Subl) 0.4 mg SL Q5M PRN PRN Reason: Chest Pain Ondansetron HCl (Ondansetron 4 Mg/2 Ml Inj) 4 mg IV Q8H PRN PRN Reason: Nausea And Vomiting Oxycodone/Acetaminophen (Oxycodone /Acetaminophen 5-325mg Tab) 1 tab PO Q6H PRN PRN Reason: Pain, Moderate (4-6) Prochlorperazine Maleate (Prochlorperazine Maleate 10 Mg Tab) 10 mg PO ONCE@1 130 NR Stop: 01/07/21 15:00 Last Admin: 01/07/21 11:40 Dose: 10 mg Documented by: Sodium Chloride (Sodium Chloride 0.9% 10 Ml Flush Syringe) 10 ml IV BID [facility] Last Admin: 01/07/21 10:53 Dose: 10 ml Documented by: Sodium Chloride (Sodium Chloride 0.9% 10 Ml Flush Syringe) 10 ml IV PRN PRN PRN Reason: LINE FLUSH Tramadol HCl (Tramadol 50 Mg Tab) 50 mg PO Q6H PRN PRN Reason: Pain, Moderate (4-6) Review of Systems Cardiovascular: chest pain, no orthopnea, no palpitations, no rapid/irregular heart beat, no edema, no syncope, no lightheadedness, no shortness of breath Physical Examination Vital Signs Temp Pulse Resp BP Pulse Ox 97.4 F L 97 H 18 110/80 99 01/07/21 01:13 01/07/21 01:13 01/07/21 01:13 01/07/21 01:13 01/07/21 01:13 General appearance: no acute distress HEENT: Positive: PERRL Neck: Positive: neck supple Lungs: Positive: clear to auscultation Neuro: Positive: Grossly Intact Abdomen: Positive: Soft Female genitourinary: deferred Skin: Positive: Clear Extremities: Absent: edema Results 01/07/21 07:24 01/07/21 07:24 Cardiac Enzymes 01/07/21 Range/Units 02:55 AST 98 H (5-40) units/L CBC 01/07/21 01/07/21 Range/Units 02:55 07:24 WBC 7.2 7.7 (4.5-11.0) K/mm3 RBC 4.16 4.19 (3.65-5.03) M/mm3 Hgb 13.4 13.2 (10.1-14.3) gm/dl Hct 41.3 41.5 (30.3-42.9) % Plt Count 239 240 (140-440) K/mm3 Lymph # (Auto) 2.0 2.5 (1.2-5.4) K/mm3 [place] # (Auto) 0.6 0.6 (0.0-0.8) K/mm3 Eos # (Auto) 0.1 0.1 (0.0-0.4) K/mm3 Baso # (Auto) 0.1 0.1 (0.0-0.1) K/mm3 Comprehensive Metabolic Panel 01/07/21 01/07/21 Range/Units 02:55 07:24 Sodium 140 140 (137-145) mmol/L Potassium 3.6 3.8 (3.6-5.0) mmol/L Chloride 101.0 102.6 (98-107) mmol/L Carbon Dioxide 26 27 (22-30) mmol/L BUN 11 12 (7-17) mg/dL Creatinine 0.9 0.9 (0.6-1.2) mg/dL Glucose 113 H 115 H (65-100) mg/dL Calcium 9.9 9.7 (8.4-10.2) mg/dL AST 98 H (5-40) units/L ALT 52 (7-56) units/L Alkaline Phosphatase 97 (35-129) units/L Total Protein 7.3 (6.3-8.2) g/dL Albumin 3.6 L (3.9-5) g/dL EKG interpretations - Telemetry EKG Rhythm: Sinus Rhythm Assessment and Plan - Patient Problems (1) Atypical chest pain Current Visit: Yes Status: Acute Plan to address problem: Patient presents with atypical chest pain, normal serial ECGs, normal serial cardiac enzymes. Further cardiac chest pain assessment will depend on clinical course. We will consider a predischarge thallium stress test as indicated. (2) Cardiomegaly Current Visit: Yes Status: Acute Plan to address problem: Patient has at least a moderate cardiomegaly on chest x-ray. There is no acute interstitial edema in the lung win, and there is no lower extremity edema. Due to cardiomegaly, we will recommend an echocardiogram for left ventricular function assessment. Further management will depend on left ventricular function as reported on echocardiography.
--- NOTE | 2021-01-07 13:41 | Event Note ---
Date: 01/07/21 The patient was seen and evaluated this morning, and was found to be hemodynamically stable. Patient underwent MRI brain without contrast and MRA head and neck, and both were found to be within normal limits. Cardiology evaluated the patient and recommends TTE at this point in time. Cardiology will continue to follow. Neurology consult was placed, and recommendations are pending. Patient was treated with headache cocktail for symptomatic treatment. Continue to monitor
--- NOTE | 2021-01-07 15:51 | Consultation ---
History of Present Illness Consult date: 01/07/21 Reason for Consult: Headache History of present illness: 50-year-old female with past medical history of tobacco abuse, hypothyroidism, anemia chronic disease, anxiety disorder, and CHF presents to the hospital with complaints of left-sided chest pain, left arm pain and swelling, frontal headache, and right eye blurred vision for 3 days. Symptoms have been constant. Patient states she first wakes up she sees colored spots which then resolved then has persistent right blurred vision. Constant frontal headache reported. Mild light sensitivity. No nausea, vomiting, or focal weakness. Patient also have a constant sharp left-sided chest pain worse with palpation. Patient also have the pain to the entire left arm from the shoulder downward and feels like her forearm is swollen. Pain also reproducible with palpation. Shortness of b reath reported. Patient compliant with medications. Denies history of PE/DVT, calf tenderness, leg edema, cough, fever, and is unvaccinated for Covid. The patient reports having Headaches, blurred vision and occipital headaches, no loss of conciouness, has not seen a neurologist . No Seizures . Past History Past Medical History: anemia, hypertension, hyperlipidemia, hypothyroidism, other (Smoker) Medications and Allergies Allergies Allergy/AdvReac Type Severity Reaction Status Date / Time naproxen Allergy Severe Angioedema Verified 01/07/21 11:31 Home Medications Medication Instructions Recorded Confirmed Last Taken Type Levothyroxine [Synthroid] 225 mcg PO QAM 01/03/20 01/07/21 01/07/21 06:01 History Escitalopram [Lexapro] 10 mg PO DAILY 30 Days #30 tablet 02/23/20 01/07/21 01/07/21 11:40 Rx FLUoxetine [PROzac] 10 mg PO DAILY 30 Days #30 tablet 02/23/20 01/07/21 01/07/21 10:51 Rx Losartan/Hydrochlorothiazide 1 each PO DAILY 90 Days #90 tablet 06/19/20 01/07/21 Unknown Rx [Losartan-Hctz 100-25 mg Tab] amLODIPine 10 mg PO DAILY 90 Days #90 tab 06/19/20 01/07/21 01/07/21 10:52 Rx Cyanocobalamin [Vitamin B-12] 1,000 mcg IM QWEEK 01/07/21 01/07/21 01/02/21 History Docusate Sodium [Colace CAP] 1 cap PO QDAY 01/07/21 01/07/21 01/07/21 History Ferrous Sulfate [Iron 325 MG] 325 mg PO QDAY 01/07/21 01/07/21 01/07/21 History Fluticasone [Flonase] 1 spray NS QDAY PRN 01/07/21 01/07/21 Unknown History Active Meds: Active Medications Acetaminophen (Acetaminophen 325 Mg Tab) 650 mg PO Q4H PRN PRN Reason: Pain MILD(1-3)/Fever >100.5/ROSARIO Amlodipine Besylate (Amlodipine 10 Mg Tab) 10 mg PO DAILY [facility] Last Admin: 01/07/21 10:52 Dose: 10 mg Documented by: Atorvastatin Calcium (Atorvastatin 40 Mg Tab) 40 mg PO QHS [facility] Cyclobenzaprine HCl (Cyclobenzaprine 10 Mg Tab) 10 mg PO TID PRN PRN Reason: Muscle Spasm Docusate Sodium (Docusate Sodium 100 Mg Cap) 100 mg PO BID [facility] Last Admin: 01/07/21 10:52 Dose: 100 mg Documented by: Escitalopram Oxalate (Escitalopram 10 Mg Tab) 10 mg PO DAILY [facility] Last Admin: 01/07/21 11:40 Dose: 10 mg Documented by: Famotidine (Famotidine 20 Mg/2 Ml Inj) 20 mg IV BID [facility] Last Admin: 01/07/21 10:53 Dose: 20 mg Documented by: Ferrous Sulfate (Ferrous Sulfate 325 Mg Tab) 325 mg PO TID [facility] Last Admin: 01/07/21 14:05 Dose: 325 mg Documented by: Fluoxetine HCl (Fluoxetine 10 Mg Tab) 10 mg PO DAILY [facility] Last Admin: 01/07/21 10:51 Dose: 10 mg Documented by: Furosemide (Furosemide 20 Mg Tab) 40 mg PO QDAY [facility] Heparin Sodium (Porcine) (Heparin 5,000 Unit/1 Ml Vial) 5,000 unit SUB-Q Q8HR [facility] Last Admin: 01/07/21 14:05 Dose: 5,000 unit Documented by: Hydrochlorothiazide (Hydrochlorothiazide 25 Mg Tab) 25 mg PO QDAY [facility] Last Admin: 01/07/21 10:52 Dose: 25 mg Documented by: Hydromorphone HCl (Hydromorphone 1 Mg/1 Ml Inj) 0.5 mg IV Q3H PRN PRN Reason: Pain , Severe (7-10) Last Admin: 01/07/21 07:57 Dose: 0.5 mg Documented by: Dextrose/Sodium Chloride (D5ns) 1,000 mls @ 100 mls/hr IV DIRECT [facility] Labetalol HCl (Labetalol 20 Mg/4 Ml Inj) 10 mg IV Q5MIN PRN PRN Reason: to maintain SBP < 180 Levothyroxine Sodium (Levothyroxine 25 Mcg Tab) 25 mcg PO QAM@0600 [facility] Last Admin: 01/07/21 06:01 Dose: 25 mcg Documented by: Levothyroxine Sodium (Levothyroxine 100 Mcg Tab) 200 mcg PO DAILY@0600 [facility] Last Admin: 01/07/21 06:01 Dose: 200 mcg Documented by: Losartan Potassium (Losartan 50 Mg Tab) 100 mg PO QDAY [facility] Last Admin: 01/07/21 10:51 Dose: 100 mg Documented by: Multivit/Ca Carb/B Cmplx/FA/Prenat (Folic Acid/Vit B Comp W-C 1 Mg (Renal Caps)) 1 cap PO QDAY [facility] Last Admin: 01/07/21 11:40 Dose: 1 cap Documented by: Nitroglycerin (Nitroglycerin 0.4 Mg Tab Subl) 0.4 mg SL Q5M PRN PRN Reason: Chest Pain Ondansetron HCl (Ondansetron 4 Mg/2 Ml Inj) 4 mg IV Q8H PRN PRN Reason: Nausea And Vomiting Last Admin: 01/07/21 14:01 Dose: 4 mg Documented by: Oxycodone/Acetaminophen (Oxycodone /Acetaminophen 5-325mg Tab) 1 tab PO Q6H PRN PRN Reason: Pain, Moderate (4-6) Sodium Chloride (Sodium Chloride 0.9% 10 Ml Flush Syringe) 10 ml IV BID [facility] Last Admin: 01/07/21 10:53 Dose: 10 ml Documented by: Sodium Chloride (Sodium Chloride 0.9% 10 Ml Flush Syringe) 10 ml IV PRN PRN PRN Reason: LINE FLUSH Tramadol HCl (Tramadol 50 Mg Tab) 50 mg PO Q6H PRN PRN Reason: Pain, Moderate (4-6) Physical Examination - Vital Signs Vital Signs: Vital Signs Temp Pulse Resp BP Pulse Ox 97.4 F L 97 H 18 110/80 99 01/07/21 01:13 01/07/21 01:13 01/07/21 01:13 01/07/21 01:13 01/07/21 01:13 - Physical Exam Narrative exam: The patient is alert , moves all 4 extremities well , finger to nose is normal , no drift . Gait is not tested . Results - Laboratory Findings CBC and BMP: 01/07/21 07:24 01/07/21 07:24 Abnormal Lab Findings: Abnormal Labs 01/07/21 01/07/21 01/07/21 02:55 02:55 03:33 MCV 99 H RDW 16.1 H [place] % (Auto) 7.7 H ABG pO2 59.8 L ABG HCO3 29.5 H Glucose 113 H AST 98 H Albumin 3.6 L 01/07/21 01/07/21 07:24 07:24 MCV 99 H RDW 16.1 H [place] % (Auto) 8.1 H ABG pO2 ABG HCO3 Glucose 115 H AST Albumin Assessment and Plan 1. Headches - More likely Chronic Migraine . No evidence of CVA on the MRI Brain and MRA Brain no evidence of Aneurysm. 2. Reviewed All Medications . 3. Given the Chronicity of Symptoms and underying Anxiety Recommend Depakote DR 250 mg at bed time as a preventative Medication for Management of ROSARIO and possibly underlying anxiety . 4. Needs out Patient Neurology followup . 5. Reviewed MRI Brain and MRA Brain . Call Back with Questions . Dr. Mane
[2021-01-07] MEDS: oxyCODONE /ACETAMINOPHEN 5-325MG TAB PO PRN (16:40)
[2021-01-07] MEDS: D5W/0.9% NACL 1,000 ML IV SCH (17:52)
[2021-01-08] MEDS: oxyCODONE /ACETAMINOPHEN 5-325MG TAB PO PRN ×3 (02:36→17:35)
[2021-01-08] MEDS: HYDROmorphone 1 MG/1 ML INJ IV PRN (04:04)
[2021-01-08 05:55] LABS: Basophils % (Auto) 0.4 % (0.0-1.8); Eosinophils % (Auto) 0.6 % (0.0-4.3); Hematocrit 40.1 % (30.3-42.9); Hemoglobin 12.6 gm/dl (10.1-14.3); Lymphocytes # (Auto) 1.9 K/mm3 (1.2-5.4); Lymphocytes % (Auto) 26.2 % (13.4-35.0); Mean Corpuscular HGB Conc 32 % (30-34); Mean Corpuscular Volume 100 fl (79-97); Monocytes # (Auto) 0.6 K/mm3 (0.0-0.8); Monocytes % (Auto) 8.1 % (0.0-7.3); Platelet Count 250 K/mm3 (140-440); Red Blood Count 4.03 M/mm3 (3.65-5.03); Red Cell Distribution Width 16.2 % (13.2-15.2)
[2021-01-08 06:15] LABS: BUN/Creatinine Ratio 11; Blood Urea Nitrogen 10 mg/dL (7-17); Calcium 9.3 mg/dL (8.4-10.2); Chol/HDL Ratio 3.69 %; HDL Cholesterol 33 mg/dL (40-59); Hemolysis Index 7; LDL Cholesterol,Direct 70 mg/dL (50-130)
[2021-01-08] MEDS: HEPARIN 5,000 UNIT/1 ML VIAL SUB-Q SCH ×3 (06:39→21:52)
[2021-01-08] MEDS: LEVOTHYROXINE 25 MCG TAB PO SCH (06:40)
[2021-01-08] MEDS: LEVOTHYROXINE 100 MCG TAB PO SCH (06:40)
[2021-01-08] MEDS: D5W/0.9% NACL 1,000 ML IV SCH (09:13)
[2021-01-08] MEDS: FOLIC ACID/VIT B COMP W-C 1 MG (RENAL CAPS) PO SCH (09:14)
[2021-01-08] MEDS: LOSARTAN 50 MG TAB PO SCH (09:14)
[2021-01-08] MEDS: FUROSEMIDE 20 MG TAB PO SCH (09:15)
[2021-01-08] MEDS: FERROUS SULFATE 325 MG TAB PO SCH ×3 (09:15→21:52)
[2021-01-08] MEDS: FLUoxetine 10 MG TAB PO SCH (09:15)
[2021-01-08] MEDS: DOCUSATE SODIUM 100 MG CAP PO SCH ×2 (09:15→21:52)
[2021-01-08] MEDS: amLODIPine 10 MG TAB PO SCH (09:15)
[2021-01-08] MEDS: ESCITALOPRAM 10 MG TAB PO SCH (09:15)
[2021-01-08] MEDS: hydroCHLOROthiazide 25 MG TAB PO SCH (09:15)
[2021-01-08] MEDS: FAMOTIDINE 20 MG/2 ML INJ IV SCH ×2 (09:16→21:53)
--- NOTE | 2021-01-08 10:46 | Progress Note ---
Assessment and Plan - Patient Problems (1) Atypical chest pain Current Visit: Yes Status: Acute Plan to address problem: Chest pain is musculoskeletal normal serial ECGs. normal serial cardiac enzymes. Subjective Date of service: 01/08/21 Interval history: Patient has persistent musculoskeletal chest pain that is reproducible with palpation. Patient was also noted with mild fever overnight, max temperature 100.1. Objective Vital Signs Temp Pulse Pulse Resp BP BP Pulse Ox 01/08/21 09:14 92 H 108/63 01/08/21 08:23 97.8 F 92 H 18 108/63 90 01/08/21 06:00 96 01/08/21 03:21 100.1 F H 111 H 18 114/73 93 01/08/21 00:09 99.7 F H 108 H 18 108/66 96 01/07/21 21:02 93 01/07/21 20:51 97 01/07/21 19:58 98.0 F 108 H 20 125/71 91 01/07/21 18:00 90 18 97 01/07/21 17:29 90 01/07/21 17:17 99.9 F H 102 H 16 115/72 92 01/07/21 16:31 102/62 73 L 01/07/21 16:21 111/72 75 L 01/07/21 16:11 111/72 75 L 01/07/21 16:01 111/72 84 01/07/21 15:51 111/72 92 01/07/21 15:41 111/78 96 01/07/21 15:39 94 H 15 102/62 97 01/07/21 15:31 111/78 94 01/07/21 15:21 102/62 94 01/07/21 15:11 102/62 95 01/07/21 15:01 102/62 94 01/07/21 14:51 102/62 93 01/07/21 14:41 111/78 96 01/07/21 14:31 111/78 96 01/07/21 14:21 111/78 94 01/07/21 14:11 111/78 95 01/07/21 14:01 111/78 93 01/07/21 13:51 111/78 91 01/07/21 13:41 110/65 89 01/07/21 13:31 112/79 76 L 01/07/21 13:21 112/79 85 01/07/21 13:11 112/79 78 L 01/07/21 13:01 112/79 78 L 01/07/21 12:51 112/79 92 01/07/21 12:41 112/79 93 01/07/21 12:33 112/79 97 01/07/21 12:00 110/68 94 01/07/21 11:50 110/68 95 01/07/21 11:41 115/74 98 01/07/21 11:38 95 H 14 110/68 96 01/07/21 11:31 115/74 94 01/07/21 11:21 115/74 98 01/07/21 11:11 109/64 94 01/07/21 11:01 110/68 95 01/07/21 10:52 82 110/68 01/07/21 10:51 81 110/68 01/07/21 10:50 110/68 - Physical Examination General: No Apparent Distress HEENT: Positive: PERRL Neck: Positive: neck supple Cardiac: Positive: Reg Rate and Rhythm Lungs: Positive: Decreased Breath Sounds Neuro: Positive: Grossly Intact Abdomen: Positive: Soft Extremities: Absent: edema - Labs and Meds Lipids 01/08/21 Range/Units 04:39 Triglycerides 87 (2-149) mg/dL Cholesterol 122 (50-199) mg/dL HDL Cholesterol 33 L (40-59) mg/dL Cholesterol/HDL Ratio 3.69 % CBC 01/08/21 Range/Units 04:39 WBC 7.1 (4.5-11.0) K/mm3 RBC 4.03 (3.65-5.03) M/mm3 Hgb 12.6 (10.1-14.3) gm/dl Hct 40.1 (30.3-42.9) % Plt Count 250 (140-440) K/mm3 Lymph # (Auto) 1.9 (1.2-5.4) K/mm3 [place] # (Auto) 0.6 (0.0-0.8) K/mm3 Eos # (Auto) 0.0 (0.0-0.4) K/mm3 Baso # (Auto) 0.0 (0.0-0.1) K/mm3 Comprehensive Metabolic Panel 01/08/21 Range/Units 04:39 Sodium 137 (137-145) mmol/L Potassium 3.5 L (3.6-5.0) mmol/L Chloride 97.5 L (98-107) mmol/L Carbon Dioxide 30 (22-30) mmol/L BUN 10 (7-17) mg/dL Creatinine 0.9 (0.6-1.2) mg/dL Glucose 129 H (65-100) mg/dL Calcium 9.3 (8.4-10.2) mg/dL
[2021-01-08] MEDS ORDERED: REGADENOSON 0.4 MG/5 ML INJ IV ONE (12:08)
[2021-01-08] MEDS ORDERED: SODIUM CHLORIDE 0.9% 500 ML 500 ML ONE (12:27)
[2021-01-08] MEDS ORDERED: SODIUM CHLORIDE 0.9% 500 ML 500 ML IV ONE (13:00)
[2021-01-08] MEDS: traMADol 50 MG TAB PO PRN (18:53)
--- NOTE | 2021-01-08 18:55 | Electrocardiograph Report ---
[facility] Test Date: 2021-01-07 Test Time: 02:36:38 Pat Name: JESUS ESTEVES Department: Room: A468 Gender: F Tire Buffer: ED NURSE : 1970 Requested By: HERMAN HAWKINS Order Number: [id number] Reading MD: Cliff Sharma Measurements Intervals [place] Rate: 85 P: 32 MS: 160 QRS: 49 QRSD: 78 T: 32 QT: 386 QTc: 460 Interpretive Statements Sinus rhythm Probable left atrial enlargement Compared to ECG 06/19/2020 09:57:26 No significant changes Electronically Signed On 01-08-2021 18:55:06 EDT by Cliff Sharma
--- NOTE | 2021-01-08 18:59 | Electrocardiograph Report ---
[facility] Test Date: 2021-01-07 Test Time: 07:51:41 Pat Name: JESUS ESTEVES Department: Room: A468 Gender: F Editing Internship: JOANA : 1970 Requested By: HERMAN HAWKINS Order Number: [id number] Reading MD: Cliff Sharma Measurements Intervals [place] Rate: 92 P: 35 [place]: 154 QRS: 64 QRSD: 79 T: 20 QT: 376 QTc: 466 Interpretive Statements Sinus rhythm Probable left atrial enlargement Compared to ECG 01/07/2021 02:36:38 No significant changes Electronically Signed On 01-08-2021 18:59:02 EDT by Cliff Sharma
--- NOTE | 2021-01-08 19:20 | Electrocardiograph Report ---
[facility] Test Date: 2021-01-08 Test Time: 07:32:59 Pat Name: JESUS ESTEVES Department: Room: A468 Gender: F Production Potter: BLANCA : 1970 Requested By: ALLEN MOHAN Order Number: [id number] Reading MD: Cliff Sharma Measurements Intervals [place] Rate: 96 P: 27 [place]: 165 QRS: 72 QRSD: 76 T: -5 QT: 355 QTc: 451 Interpretive Statements Sinus rhythm Probable left atrial enlargement Compared to ECG 01/07/2021 07:51:41 No significant changes Electronically Signed On 01-08-2021 19:19:53 EDT by Cliff Sharma
[2021-01-08] MEDS: CYCLOBENZAPRINE 10 MG TAB PO PRN (19:48)
--- NOTE | 2021-01-08 21:30 | Progress Note ---
Assessment and Plan Assessment and plan: #Acute hypoxic respiratory failure -Patient with oxygen requirement, SPO2 dropping to 70s -Chest x-ray 01/07 without acute findings -Currently on nasal cannula 2 L/min -Home O2 to prior to discharge #Atypical chest pain -Resolved -Stress test negative -Echocardiogram LVEF 50 to 55% #Headache -CT head negative for acute findings -As needed pain meds -Blood pressure control #Hypertension -Blood pressure at goal -Continue amlodipine, losartan, hydrochlorothiazide, amlodipine and Lasix #Hypothyroidism -Continue levothyroxine #Tobacco dependence -Counseled about tobacco cessation -Patient refused patch Disposition Plan: Home Total Time Spent with Patient (Minutes): 25 minutes History Interval history: No acute events overnight. Patient denies chest pain. Currently complaining of headache that is not resolved with PRN pain medication. Hospitalist Physical - Physical exam Narrative exam: GENERAL: Well-developed well-nourished. Sitting on the side of the bed in no acute distress. HEENT: Nasal cannula at 2 L/min CHEST/LUNGS: CTAB on room air HEART/CARDIOVASCULAR: RRR. No murmur, rubs or gallops appreciated. ABDOMEN: +BS. NT/ND. NEURO: No focal motor deficit. Follows all commands. MUSCULOSKELETAL: No joint effusion EXTREMITIES: No cyanosis, clubbing or edema. PSYCH: Cooperative. - Constitutional Vitals: Temp Pulse Resp BP Pulse Ox 99.9 F H 88 18 97/65 92 01/08/21 20:05 01/08/21 20:05 01/08/21 20:05 01/08/21 20:05 01/08/21 20:05 General appearance: Present: no acute distress HEART Score - HEART Score EKG: Normal Age: 45-65 Risk factors: > 3 risk factors or hx of atherosclerotic disease Troponin: Troponin T < 0.010 ng/mL (0.00-0.029) 01/07/21 12:10 Troponin: < normal limit Results - Labs CBC & Chem 7: 01/08/21 04:39 01/08/21 04:39 Labs: Laboratory Last Values WBC 7.1 K/mm3 (4.5-11.0) 01/08/21 04:39 RBC 4.03 M/mm3 (3.65-5.03) 01/08/21 04:39 Hgb 12.6 gm/dl (10.1-14.3) 01/08/21 04:39 Hct 40.1 % (30.3-42.9) 01/08/21 04:39 MCV 100 fl (79-97) H 01/08/21 04:39 MCH 31 pg (28-32) 01/08/21 04:39 MCHC 32 % (30-34) 01/08/21 04:39 RDW 16.2 % (13.2-15.2) H 01/08/21 04:39 Plt Count 250 K/mm3 (140-440) 01/08/21 04:39 Lymph % (Auto) 26.2 % (13.4-35.0) 01/08/21 04:39 [place] % (Auto) 8.1 % (0.0-7.3) H 01/08/21 04:39 Eos % (Auto) 0.6 % (0.0-4.3) 01/08/21 04:39 Baso % (Auto) 0.4 % (0.0-1.8) 01/08/21 04:39 Lymph # (Auto) 1.9 K/mm3 (1.2-5.4) 01/08/21 04:39 [place] # (Auto) 0.6 K/mm3 (0.0-0.8) 01/08/21 04:39 Eos # (Auto) 0.0 K/mm3 (0.0-0.4) 01/08/21 04:39 Baso # (Auto) 0.0 K/mm3 (0.0-0.1) 01/08/21 04:39 Seg Neutrophils % 64.7 % (40.0-70.0) 01/08/21 04:39 Seg Neutrophils # 4.6 K/mm3 (1.8-7.7) 01/08/21 04:39 D-Dimer 142.62 ng/mlDDU (0-234) 01/07/21 02:55 ABG pH 7.353 pH Units (7.350-7.450) 01/07/21 03:33 ABG pCO2 54.2 mm Hg 01/07/21 03:33 ABG pO2 59.8 mm Hg (80.0-90.0) L 01/07/21 03:33 ABG HCO3 29.5 mmol/L (20.0-26.0) H 01/07/21 03:33 ABG O2 Saturation Not Reportable 01/07/21 03:33 ABG O2 Content 17.0 (0.0-44) 01/07/21 03:33 ABG Base Excess 2.7 mmol/L (-2.0-3.0) 01/07/21 03:33 ABG Hemoglobin 13.5 gm/dl (12.0-16.0) 01/07/21 03:33 ABG Carboxyhemoglobin Not Reportable 01/07/21 03:33 ABG Methemoglobin Not Reportable 01/07/21 03:33 Oxyhemoglobin Not Reportable 01/07/21 03:33 FiO2 21 % 01/07/21 03:33 Sodium 137 mmol/L (137-145) 01/08/21 04:39 Potassium 3.5 mmol/L (3.6-5.0) L 01/08/21 04:39 Chloride 97.5 mmol/L (98-107) L 01/08/21 04:39 Carbon Dioxide 30 mmol/L (22-30) 01/08/21 04:39 Anion Gap 13 mmol/L 01/08/21 04:39 BUN 10 mg/dL (7-17) 01/08/21 04:39 Creatinine 0.9 mg/dL (0.6-1.2) 01/08/21 04:39 Estimated GFR > 60 ml/min 01/08/21 04:39 BUN/Creatinine Ratio 11 % 01/08/21 04:39 Glucose 129 mg/dL (65-100) H 01/08/21 04:39 Hemoglobin A1c 6.0 % (4-6) 01/08/21 04:39 Calcium 9.3 mg/dL (8.4-10.2) 01/08/21 04:39 Phosphorus 3.60 mg/dL (2.5-4.5) 01/08/21 04:39 Magnesium 1.50 mg/dL (1.7-2.3) L 01/08/21 04:39 Total Bilirubin 0.20 mg/dL (0.1-1.2) 01/07/21 02:55 AST 98 units/L (5-40) H 01/07/21 02:55 ALT 52 units/L (7-56) 01/07/21 02:55 Alkaline Phosphatase 97 units/L (35-129) 01/07/21 02:55 Troponin T < 0.010 ng/mL (0.00-0.029) 01/07/21 12:10 NT-Pro-B Natriuret Pep 55.51 pg/mL (0-900) 01/07/21 02:55 Total Protein 7.3 g/dL (6.3-8.2) 01/07/21 02:55 Albumin 3.6 g/dL (3.9-5) L 01/07/21 02:55 Albumin/Globulin Ratio 1.0 % 01/07/21 02:55 Triglycerides 87 mg/dL (2-149) 01/08/21 04:39 Cholesterol 122 mg/dL (50-199) 01/08/21 04:39 LDL Cholesterol Direct 70 mg/dL (50-130) 01/08/21 04:39 HDL Cholesterol 33 mg/dL (40-59) L 01/08/21 04:39 Cholesterol/HDL Ratio 3.69 % 01/08/21 04:39 [place]/IV: Voiding Method Toilet Active Medications - Current Medications Current Medications: Generic Name Dose Route Start Last Admin Trade Name Freq PRN Reason Stop Dose Admin Acetaminophen 650 mg 01/07/21 05:40 01/08/21 12:43 Acetaminophen 325 Mg Tab PO 650 mg Q4H PRN Administration Pain MILD(1-3)/Fever >100.5/ROSARIO Amlodipine Besylate 10 mg 01/07/21 10:00 01/08/21 09:15 Amlodipine 10 Mg Tab PO 10 mg DAILY [facility]CK[facility] Administration Atorvastatin Calcium 40 mg 01/07/21 22:00 01/07/21 21:56 Atorvastatin 40 Mg Tab PO 40 mg QHS [facility]CK[facility] Administration Cyclobenzaprine HCl 10 mg 01/07/21 05:46 01/08/21 19:48 Cyclobenzaprine 10 Mg Tab PO 10 mg TID PRN Administration Muscle Spasm Docusate Sodium 100 mg 01/07/21 10:00 01/08/21 09:15 Docusate Sodium 100 Mg Cap PO 100 mg BID M[facility]INLEY Administration Escitalopram Oxalate 10 mg 01/07/21 10:00 01/08/21 09:15 Escitalopram 10 Mg Tab PO 10 mg DAILY [facility] Administration Famotidine 20 mg 01/07/21 10:00 01/08/21 09:16 Famotidine 20 Mg/2 Ml Inj IV 20 mg BID MCKINLEY Administration Ferrous Sulfate 325 mg 01/07/21 08:00 01/08/21 17:39 Ferrous Sulfate 325 Mg Tab PO Not Given TID MCKINLEY Fluoxetine HCl 10 mg 01/07/21 10:00 01/08/21 09:15 Fluoxetine 10 Mg Tab PO 10 mg DAILY [facility] Administration Furosemide 40 mg 01/08/21 10:00 01/08/21 09:15 Furosemide 20 Mg Tab PO 40 mg QDAY M[facility]IN[facility] Administration Heparin Sodium (Porcine) 5,000 unit 01/07/21 06:00 01/08/21 14:00 Heparin 5,000 Unit/1 Ml Vial SUB-Q Not Given Q8HR [facility] Hydrochlorothiazide 25 mg 01/07/21 10:00 01/08/21 09:15 Hydrochlorothiazide 25 Mg Tab PO 25 mg QDAY M[facility] Administration Hydromorphone HCl 0.5 mg 01/07/21 05:40 01/08/21 04:04 Hydromorphone 1 Mg/1 Ml Inj IV 0.5 mg Q3H PRN Administration Pain , Severe (7-10) Dextrose/Sodium Chloride 1,000 mls @ 100 mls/hr 01/07/21 06:00 01/08/21 09:13 D5ns IV 100 mls/hr DIRECT MCKINLEY Administration Labetalol HCl 10 mg 01/07/21 05:40 Labetalol 20 Mg/4 Ml Inj IV Q5MIN PRN to maintain SBP < 180 Levothyroxine Sodium 25 mcg 01/07/21 06:00 01/08/21 06:40 Levothyroxine 25 Mcg Tab PO 25 mcg QAM@0600 M[facility] Administration Levothyroxine Sodium 200 mcg 01/07/21 06:00 01/08/21 06:40 Levothyroxine 100 Mcg Tab PO 200 mcg DAILY@0600 M[facility] Administration Losartan Potassium 100 mg 01/07/21 10:00 01/08/21 09:14 Losartan 50 Mg Tab PO 100 mg QDAY M[facility] Administration Multivit/Ca Carb/B Cmplx/FA/Prenat 1 cap 01/07/21 10:00 01/08/21 09:14 Folic Acid/Vit B Comp W-C 1 Mg (Renal Caps) PO 1 cap QDAY MCKINLEY Administration Nitroglycerin 0.4 mg 01/07/21 05:40 Nitroglycerin 0.4 Mg Tab Subl SL Q5M PRN Chest Pain Ondansetron HCl 4 mg 01/07/21 05:40 01/07/21 14:01 Ondansetron 4 Mg/2 Ml Inj IV 4 mg Q8H PRN Administration Nausea And Vomiting Oxycodone/Acetaminophen 1 tab 01/07/21 05:40 01/08/21 17:35 Oxycodone /Acetaminophen 5-325mg Tab PO 1 tab Q6H PRN Administration Pain, Moderate (4-6) Sodium Chloride 10 ml 01/07/21 10:00 01/08/21 09:16 Sodium Chloride 0.9% 10 Ml Flush Syringe IV 10 ml BID MCKINLEY Administration Sodium Chloride 10 ml 01/07/21 05:40 01/08/21 04:07 Sodium Chloride 0.9% 10 Ml Flush Syringe IV 10 ml PRN PRN Administration LINE FLUSH Tramadol HCl 50 mg 01/07/21 05:40 01/08/21 18:53 Tramadol 50 Mg Tab PO 50 mg Q6H PRN Administration Pain, Moderate (4-6)
[2021-01-09] MEDS: oxyCODONE /ACETAMINOPHEN 5-325MG TAB PO PRN ×4 (01:23→23:07)
[2021-01-09] MEDS: LEVOTHYROXINE 100 MCG TAB PO SCH (05:51)
[2021-01-09] MEDS: traMADol 50 MG TAB PO PRN (05:51)
[2021-01-09] MEDS: HEPARIN 5,000 UNIT/1 ML VIAL SUB-Q SCH ×3 (05:51→23:00)
[2021-01-09] MEDS: LEVOTHYROXINE 25 MCG TAB PO SCH (05:51)
[2021-01-09] MEDS: FERROUS SULFATE 325 MG TAB PO SCH ×3 (08:00→23:03)
--- NOTE | 2021-01-09 08:07 | Progress Note ---
Assessment and Plan Assessment and plan: #Acute hypoxic respiratory failure -Patient with oxygen requirement, SPO2 dropping to 70s -repeat CXR today with non-specific bibasilar opacities -patient declined COVID and influenza testing for mandaen reasons -Currently on nasal cannula 2 L/min -Home O2 to prior to discharge #Atypical chest pain -Resolved -Stress test negative -Echocardiogram LVEF 50 to 55% #Headache -CT head negative for acute findings -As needed pain meds -Blood pressure control #Hypertension -Blood pressure at goal -Continue amlodipine, losartan, hydrochlorothiazide, amlodipine and Lasix #Hypothyroidism -Continue levothyroxine #Tobacco dependence -Counseled about tobacco cessation -Patient refused patch Disposition Plan: Home tomorrow Total Time Spent with Patient (Minutes): 20 minutes History Interval history: No acute events overnight. Patient refuses COVID-19 swab for mandaen reasons. Continues to have shortness of breath. Hospitalist Physical - Physical exam Narrative exam: GENERAL: Well-developed well-nourished. Sitting on the side of the bed in no acute distress. HEENT: Nasal cannula at 2 L/min CHEST/LUNGS: CTAB on room air HEART/CARDIOVASCULAR: Mildly tachycardic. No murmur, rubs or gallops appreciated. ABDOMEN: +BS. NT/ND. NEURO: No focal motor deficit. Follows all commands. MUSCULOSKELETAL: No joint effusion EXTREMITIES: No cyanosis, clubbing or edema. PSYCH: Cooperative. - Constitutional Vitals: Temp Pulse Resp BP Pulse Ox 97.4 F L 103 H 18 105/60 74 L 01/09/21 04:35 01/09/21 04:35 01/09/21 04:35 01/09/21 04:35 01/09/21 04:35 General appearance: Present: no acute distress HEART Score - HEART Score EKG: Normal Age: 45-65 Risk factors: > 3 risk factors or hx of atherosclerotic disease Troponin: Troponin T < 0.010 ng/mL (0.00-0.029) 01/07/21 12:10 Troponin: < normal limit Results - Labs CBC & Chem 7: 01/08/21 04:39 01/08/21 04:39 Labs: Laboratory Last Values WBC 7.1 K/mm3 (4.5-11.0) 01/08/21 04:39 RBC 4.03 M/mm3 (3.65-5.03) 01/08/21 04:39 Hgb 12.6 gm/dl (10.1-14.3) 01/08/21 04:39 Hct 40.1 % (30.3-42.9) 01/08/21 04:39 MCV 100 fl (79-97) H 01/08/21 04:39 MCH 31 pg (28-32) 01/08/21 04:39 MCHC 32 % (30-34) 01/08/21 04:39 RDW 16.2 % (13.2-15.2) H 01/08/21 04:39 Plt Count 250 K/mm3 (140-440) 01/08/21 04:39 Lymph % (Auto) 26.2 % (13.4-35.0) 01/08/21 04:39 [place] % (Auto) 8.1 % (0.0-7.3) H 01/08/21 04:39 Eos % (Auto) 0.6 % (0.0-4.3) 01/08/21 04:39 Baso % (Auto) 0.4 % (0.0-1.8) 01/08/21 04:39 Lymph # (Auto) 1.9 K/mm3 (1.2-5.4) 01/08/21 04:39 [place] # (Auto) 0.6 K/mm3 (0.0-0.8) 01/08/21 04:39 Eos # (Auto) 0.0 K/mm3 (0.0-0.4) 01/08/21 04:39 Baso # (Auto) 0.0 K/mm3 (0.0-0.1) 01/08/21 04:39 Seg Neutrophils % 64.7 % (40.0-70.0) 01/08/21 04:39 Seg Neutrophils # 4.6 K/mm3 (1.8-7.7) 01/08/21 04:39 D-Dimer 142.62 ng/mlDDU (0-234) 01/07/21 02:55 ABG pH 7.353 pH Units (7.350-7.450) 01/07/21 03:33 ABG pCO2 54.2 mm Hg 01/07/21 03:33 ABG pO2 59.8 mm Hg (80.0-90.0) L 10/25/21 03:33 ABG HCO3 29.5 mmol/L (20.0-26.0) H 01/07/21 03:33 ABG O2 Saturation Not Reportable 01/07/21 03:33 ABG O2 Content 17.0 (0.0-44) 01/07/21 03:33 ABG Base Excess 2.7 mmol/L (-2.0-3.0) 01/07/21 03:33 ABG Hemoglobin 13.5 gm/dl (12.0-16.0) 01/07/21 03:33 ABG Carboxyhemoglobin Not Reportable 01/07/21 03:33 ABG Methemoglobin Not Reportable 01/07/21 03:33 Oxyhemoglobin Not Reportable 01/07/21 03:33 FiO2 21 % 01/07/21 03:33 Sodium 137 mmol/L (137-145) 01/08/21 04:39 Potassium 3.5 mmol/L (3.6-5.0) L 01/08/21 04:39 Chloride 97.5 mmol/L (98-107) L 01/08/21 04:39 Carbon Dioxide 30 mmol/L (22-30) 01/08/21 04:39 Anion Gap 13 mmol/L 01/08/21 04:39 BUN 10 mg/dL (7-17) 01/08/21 04:39 Creatinine 0.9 mg/dL (0.6-1.2) 01/08/21 04:39 Estimated GFR > 60 ml/min 01/08/21 04:39 BUN/Creatinine Ratio 11 % 01/08/21 04:39 Glucose 129 mg/dL (65-100) H 01/08/21 04:39 Hemoglobin A1c 6.0 % (4-6) 01/08/21 04:39 Calcium 9.3 mg/dL (8.4-10.2) 01/08/21 04:39 Phosphorus 3.60 mg/dL (2.5-4.5) 01/08/21 04:39 Magnesium 1.50 mg/dL (1.7-2.3) L 01/08/21 04:39 Total Bilirubin 0.20 mg/dL (0.1-1.2) 01/07/21 02:55 AST 98 units/L (5-40) H 01/07/21 02:55 ALT 52 units/L (7-56) 01/07/21 02:55 Alkaline Phosphatase 97 units/L (35-129) 01/07/21 02:55 Troponin T < 0.010 ng/mL (0.00-0.029) 01/07/21 12:10 NT-Pro-B Natriuret Pep 55.51 pg/mL (0-900) 01/07/21 02:55 Total Protein 7.3 g/dL (6.3-8.2) 01/07/21 02:55 Albumin 3.6 g/dL (3.9-5) L 01/07/21 02:55 Albumin/Globulin Ratio 1.0 % 01/07/21 02:55 Triglycerides 87 mg/dL (2-149) 01/08/21 04:39 Cholesterol 122 mg/dL (50-199) 01/08/21 04:39 LDL Cholesterol Direct 70 mg/dL (50-130) 01/08/21 04:39 HDL Cholesterol 33 mg/dL (40-59) L 01/08/21 04:39 Cholesterol/HDL Ratio 3.69 % 01/08/21 04:39 [place]/IV: Voiding Method Toilet Active Medications - Current Medications Current Medications: Generic Name Dose Route Start Last Admin Trade Name Freq PRN Reason Stop Dose Admin Acetaminophen 650 mg 01/07/21 05:40 01/08/21 12:43 Acetaminophen 325 Mg Tab PO 650 mg Q4H PRN Administration Pain MILD(1-3)/Fever >100.5/ROSARIO Amlodipine Besylate 10 mg 01/07/21 10:00 01/08/21 09:15 Amlodipine 10 Mg Tab PO 10 mg DAILY MCKINLEY Administration Atorvastatin Calcium 40 mg 01/07/21 22:00 01/08/21 21:52 Atorvastatin 40 Mg Tab PO 40 mg QHS MCK[facility] Administration Cyclobenzaprine HCl 10 mg 01/07/21 05:46 01/08/21 19:48 Cyclobenzaprine 10 Mg Tab PO 10 mg TID PRN Administration Muscle Spasm Docusate Sodium 100 mg 01/07/21 10:00 01/08/21 21:52 Docusate Sodium 100 Mg Cap PO 100 mg BID MCKINLEY Administration Escitalopram Oxalate 10 mg 01/07/21 10:00 01/08/21 09:15 Escitalopram 10 Mg Tab PO 10 mg DAILY MCK[place] Administration Famotidine 20 mg 01/07/21 10:00 01/08/21 21:53 Famotidine 20 Mg/2 Ml Inj IV 20 mg BID MCKIN[facility] Administration Ferrous Sulfate 325 mg 01/07/21 08:00 01/08/21 21:52 Ferrous Sulfate 325 Mg Tab PO 325 mg TID MCKINLEY Administration Fluoxetine HCl 10 mg 01/07/21 10:00 01/08/21 09:15 Fluoxetine 10 Mg Tab PO 10 mg DAILY MCKIN[place] Administration Furosemide 40 mg 01/08/21 10:00 01/08/21 09:15 Furosemide 20 Mg Tab PO 40 mg QDAY MCKINLEY Administration Heparin Sodium (Porcine) 5,000 unit 01/07/21 06:00 01/09/21 05:51 Heparin 5,000 Unit/1 Ml Vial SUB-Q 5,000 unit Q8HR [facility] Administration Hydrochlorothiazide 25 mg 01/07/21 10:00 01/08/21 09:15 Hydrochlorothiazide 25 Mg Tab PO 25 mg QDAY M[facility] Administration Hydromorphone HCl 0.5 mg 01/07/21 05:40 01/08/21 04:04 Hydromorphone 1 Mg/1 Ml Inj IV 0.5 mg Q3H PRN Administration Pain , Severe (7-10) Labetalol HCl 10 mg 01/07/21 05:40 Labetalol 20 Mg/4 Ml Inj IV Q5MIN PRN to maintain SBP < 180 Levothyroxine Sodium 25 mcg 01/07/21 06:00 01/09/21 05:51 Levothyroxine 25 Mcg Tab PO 25 mcg QAM@0600 MCKINLEY Administration Levothyroxine Sodium 200 mcg 01/07/21 06:00 01/09/21 05:51 Levothyroxine 100 Mcg Tab PO 200 mcg DAILY@0600 M[facility]IN[facility] Administration Losartan Potassium 100 mg 01/07/21 10:00 01/08/21 09:14 Losartan 50 Mg Tab PO 100 mg QDAY MCKINLEY Administration Multivit/Ca Carb/B Cmplx/FA/Prenat 1 cap 01/07/21 10:00 01/08/21 09:14 Folic Acid/Vit B Comp W-C 1 Mg (Renal Caps) PO 1 cap QDAY MCKINLEY Administration Nitroglycerin 0.4 mg 01/07/21 05:40 Nitroglycerin 0.4 Mg Tab Subl SL Q5M PRN Chest Pain Ondansetron HCl 4 mg 01/07/21 05:40 01/07/21 14:01 Ondansetron 4 Mg/2 Ml Inj IV 4 mg Q8H PRN Administration Nausea And Vomiting Oxycodone/Acetaminophen 1 tab 01/07/21 05:40 01/09/21 01:23 Oxycodone /Acetaminophen 5-325mg Tab PO 1 tab Q6H PRN Administration Pain, Moderate (4-6) Sodium Chloride 10 ml 01/07/21 10:00 01/08/21 21:53 Sodium Chloride 0.9% 10 Ml Flush Syringe IV 10 ml BID MCKINLEY Administration Sodium Chloride 10 ml 01/07/21 05:40 01/08/21 04:07 Sodium Chloride 0.9% 10 Ml Flush Syringe IV 10 ml PRN PRN Administration LINE FLUSH Tramadol HCl 50 mg 01/07/21 05:40 01/09/21 05:51 Tramadol 50 Mg Tab PO 50 mg Q6H PRN Administration Pain, Moderate (4-6)
[2021-01-09] MEDS: CYCLOBENZAPRINE 10 MG TAB PO PRN (08:12)
[2021-01-09] MEDS: FAMOTIDINE 20 MG/2 ML INJ IV SCH ×2 (09:32→23:03)
[2021-01-09] MEDS: FOLIC ACID/VIT B COMP W-C 1 MG (RENAL CAPS) PO SCH (09:32)
[2021-01-09] MEDS: hydroCHLOROthiazide 25 MG TAB PO SCH ×2 (09:33→17:08)
[2021-01-09] MEDS: FLUoxetine 10 MG TAB PO SCH (09:34)
[2021-01-09] MEDS: amLODIPine 10 MG TAB PO SCH (09:34)
[2021-01-09] MEDS: ESCITALOPRAM 10 MG TAB PO SCH (09:34)
[2021-01-09] MEDS: FUROSEMIDE 20 MG TAB PO SCH (09:35)
[2021-01-09] MEDS: DOCUSATE SODIUM 100 MG CAP PO SCH ×2 (09:36→23:00)
[2021-01-09] MEDS: LOSARTAN 50 MG TAB PO SCH (10:00)
--- NOTE | 2021-01-09 11:17 | XRay Report ---
CHEST 1 VIEW INDICATION: shortness of breath. COMPARISON: 2 days prior FINDINGS: Support devices: None. Heart: Stable. Lungs/Pleura: Bibasilar opacities may be atelectatic but are nonspecific. Mid upper lungs are clear. No significant effusion, no pneumothorax. IMPRESSION: 1. Nonspecific bibasilar opacities could be due at least in part to atelectasis. Signer Name: Bhargav Ravi MD Signed: 01/09/2021 11:12 AM Workstation Name: [email or web address]
--- NOTE | 2021-01-09 17:50 | Electrocardiograph Report ---
[facility] Test Date: 2021-01-09 Test Time: 09:15:28 Pat Name: JESUS ESTEVES Department: Room: A468 1 Gender: F Soft Boarder: MAI : 1970 Requested By: ALLEN MOHAN Order Number: [id number] Reading MD: Cliff Sharma Measurements Intervals [place] Rate: 88 P: 30 [place]: 158 QRS: 75 QRSD: 85 T: 4 QT: 390 QTc: 472 Interpretive Statements Sinus rhythm Probable left atrial enlargement Rightward axis deviation Compared to ECG 01/08/2021 07:32:59 No significant changes Electronically Signed On 01-09-2021 17:50:02 EDT by Cliff Sharma
[2021-01-10] MEDS: LEVOTHYROXINE 100 MCG TAB PO SCH (05:09)
[2021-01-10] MEDS: HEPARIN 5,000 UNIT/1 ML VIAL SUB-Q SCH ×3 (05:09→21:30)
[2021-01-10] MEDS: LEVOTHYROXINE 25 MCG TAB PO SCH (05:09)
[2021-01-10 05:14] LABS: Hematocrit 38.6 % (30.3-42.9); Hemoglobin 12.4 gm/dl (10.1-14.3); Mean Corpuscular HGB Conc 32 % (30-34); Mean Corpuscular Volume 100 fl (79-97); Platelet Count 208 K/mm3 (140-440); Red Blood Count 3.86 M/mm3 (3.65-5.03); Red Cell Distribution Width 15.8 % (13.2-15.2)
[2021-01-10 05:40] LABS: Blood Urea Nitrogen 7 mg/dL (7-17); Calcium 9.3 mg/dL (8.4-10.2); Hemolysis Index 5
[2021-01-10 05:42] LABS: BUN/Creatinine Ratio 10
[2021-01-10] MEDS: hydroCHLOROthiazide 25 MG TAB PO SCH (09:30)
[2021-01-10] MEDS: ESCITALOPRAM 10 MG TAB PO SCH (09:30)
[2021-01-10] MEDS: DOCUSATE SODIUM 100 MG CAP PO SCH ×2 (09:30→21:30)
[2021-01-10] MEDS: FOLIC ACID/VIT B COMP W-C 1 MG (RENAL CAPS) PO SCH (09:30)
[2021-01-10] MEDS ORDERED: POTASSIUM PHOSPHATE 45 MMOL in SODIUM CHLORIDE 0.9% 500 ML 500 ML IV ONE (09:30)
[2021-01-10] MEDS: FERROUS SULFATE 325 MG TAB PO SCH ×2 (09:30→21:30)
[2021-01-10] MEDS: LOSARTAN 50 MG TAB PO SCH (09:31)
[2021-01-10] MEDS: oxyCODONE /ACETAMINOPHEN 5-325MG TAB PO PRN (09:33)
[2021-01-10] MEDS: FUROSEMIDE 20 MG TAB PO SCH ×2 (09:34→09:49)
[2021-01-10] MEDS: FLUoxetine 10 MG TAB PO SCH (09:34)
[2021-01-10] MEDS: FAMOTIDINE 20 MG/2 ML INJ IV SCH (09:35)
[2021-01-10] MEDS: amLODIPine 10 MG TAB PO SCH (09:36)
[2021-01-10] MEDS ORDERED: FUROSEMIDE 40 MG/4 ML INJ IV NR (10:16)
[2021-01-10] MEDS ORDERED: POLYETHYLENE GLYCOL 3350 17 GM POWDER PO PRN (11:30)
--- NOTE | 2021-01-10 11:53 | Progress Note ---
Assessment and Plan Assessment and plan: #Acute hypoxic respiratory failure -Patient with oxygen requirement -O2 walk test: 86% on RA; 94% on 3-4L -will give a dose of lasix IV instead of PO -patient declined COVID and influenza testing for christian reasons -Currently on nasal cannula 2 L/min -Home O2 to prior to discharge #Atypical chest pain -Resolved -Stress test negative -Echocardiogram LVEF 50 to 55% #Headache -CT head negative for acute findings -As needed pain meds -Blood pressure control #Hypertension -Blood pressure at goal -Continue amlodipine, losartan, hydrochlorothiazide, amlodipine and Lasix #Hypothyroidism -Continue levothyroxine #Tobacco dependence -Counseled about tobacco cessation -Patient refused patch Disposition Plan: Home Total Time Spent with Patient (Minutes): 20 minutes History Interval history: No acute events overnight. Reports feeling better. Still requiring oxygen. Denies chest pain and headache. Hospitalist Physical - Physical exam Narrative exam: GENERAL: Well-developed well-nourished. Sitting on the side of the bed in no acute distress. HEENT: Nasal cannula at 2 L/min CHEST/LUNGS: CTAB on room air HEART/CARDIOVASCULAR: RRR. No murmur, rubs or gallops appreciated. ABDOMEN: +BS. NT/ND. NEURO: No focal motor deficit. Follows all commands. MUSCULOSKELETAL: No joint effusion EXTREMITIES: No cyanosis, clubbing or edema. PSYCH: Cooperative. - Constitutional Vitals: Temp Pulse Resp BP Pulse Ox 97.9 F 87 16 135/101 100 01/10/21 08:22 01/10/21 09:36 01/10/21 09:33 01/10/21 08:22 01/10/21 08:22 General appearance: Present: no acute distress HEART Score - HEART Score EKG: Normal Age: 45-65 Risk factors: > 3 risk factors or hx of atherosclerotic disease Troponin: Troponin T < 0.010 ng/mL (0.00-0.029) 01/07/21 12:10 Troponin: < normal limit Results - Labs CBC & Chem 7: 01/10/21 04:22 01/10/21 04:22 Labs: Laboratory Last Values WBC 6.0 K/mm3 (4.5-11.0) 01/10/21 04:22 RBC 3.86 M/mm3 (3.65-5.03) 01/10/21 04:22 Hgb 12.4 gm/dl (10.1-14.3) 01/10/21 04:22 Hct 38.6 % (30.3-42.9) 01/10/21 04:22 MCV 100 fl (79-97) H 01/10/21 04:22 MCH 32 pg (28-32) 01/10/21 04:22 MCHC 32 % (30-34) 01/10/21 04:22 RDW 15.8 % (13.2-15.2) H 01/10/21 04:22 Plt Count 208 K/mm3 (140-440) 01/10/21 04:22 Lymph % (Auto) 26.2 % (13.4-35.0) 01/08/21 04:39 [place] % (Auto) 8.1 % (0.0-7.3) H 01/08/21 04:39 Eos % (Auto) 0.6 % (0.0-4.3) 01/08/21 04:39 Baso % (Auto) 0.4 % (0.0-1.8) 01/08/21 04:39 Lymph # (Auto) 1.9 K/mm3 (1.2-5.4) 01/08/21 04:39 [place] # (Auto) 0.6 K/mm3 (0.0-0.8) 01/08/21 04:39 Eos # (Auto) 0.0 K/mm3 (0.0-0.4) 01/08/21 04:39 Baso # (Auto) 0.0 K/mm3 (0.0-0.1) 01/08/21 04:39 Seg Neutrophils % 64.7 % (40.0-70.0) 01/08/21 04:39 Seg Neutrophils # 4.6 K/mm3 (1.8-7.7) 01/08/21 04:39 D-Dimer 142.62 ng/mlDDU (0-234) 01/07/21 02:55 ABG pH 7.353 pH Units (7.350-7.450) 01/07/21 03:33 ABG pCO2 54.2 mm Hg 01/07/21 03:33 ABG pO2 59.8 mm Hg (80.0-90.0) L 01/07/21 03:33 ABG HCO3 29.5 mmol/L (20.0-26.0) H 01/07/21 03:33 ABG O2 Saturation Not Reportable 01/07/21 03:33 ABG O2 Content 17.0 (0.0-44) 01/07/21 03:33 ABG Base Excess 2.7 mmol/L (-2.0-3.0) 01/07/21 03:33 ABG Hemoglobin 13.5 gm/dl (12.0-16.0) 01/07/21 03:33 ABG Carboxyhemoglobin Not Reportable 01/07/21 03:33 ABG Methemoglobin Not Reportable 01/07/21 03:33 Oxyhemoglobin Not Reportable 01/07/21 03:33 FiO2 21 % 01/07/21 03:33 Sodium 138 mmol/L (137-145) 01/10/21 04:22 Potassium 3.2 mmol/L (3.6-5.0) L 01/10/21 04:22 Chloride 92.9 mmol/L (98-107) L 01/10/21 04:22 Carbon Dioxide 38 mmol/L (22-30) H D 01/10/21 04:22 Anion Gap 10 mmol/L 01/10/21 04:22 BUN 7 mg/dL (7-17) 01/10/21 04:22 Creatinine 0.7 mg/dL (0.6-1.2) 01/10/21 04:22 Estimated GFR > 60 ml/min 01/10/21 04:22 BUN/Creatinine Ratio 10 % 01/10/21 04:22 Glucose 99 mg/dL (65-100) 01/10/21 04:22 Hemoglobin A1c 6.0 % (4-6) 01/08/21 04:39 Calcium 9.3 mg/dL (8.4-10.2) 01/10/21 04:22 Phosphorus 3.60 mg/dL (2.5-4.5) 01/08/21 04:39 Magnesium 1.50 mg/dL (1.7-2.3) L 01/08/21 04:39 Total Bilirubin 0.20 mg/dL (0.1-1.2) 01/07/21 02:55 AST 98 units/L (5-40) H 01/07/21 02:55 ALT 52 units/L (7-56) 01/07/21 02:55 Alkaline Phosphatase 97 units/L (35-129) 01/07/21 02:55 Troponin T < 0.010 ng/mL (0.00-0.029) 01/07/21 12:10 NT-Pro-B Natriuret Pep 55.51 pg/mL (0-900) 01/07/21 02:55 Total Protein 7.3 g/dL (6.3-8.2) 01/07/21 02:55 Albumin 3.6 g/dL (3.9-5) L 01/07/21 02:55 Albumin/Globulin Ratio 1.0 % 01/07/21 02:55 Triglycerides 87 mg/dL (2-149) 01/08/21 04:39 Cholesterol 122 mg/dL (50-199) 01/08/21 04:39 LDL Cholesterol Direct 70 mg/dL (50-130) 01/08/21 04:39 HDL Cholesterol 33 mg/dL (40-59) L 01/08/21 04:39 Cholesterol/HDL Ratio 3.69 % 01/08/21 04:39 Nasal Screen MRSA (PCR) Negative (Negative) 01/08/21 09:28 [place]/IV: Voiding Method Toilet Active Medications - Current Medications Current Medications: Generic Name Dose Route Start Last Admin Trade Name Freq PRN Reason Stop Dose Admin Acetaminophen 650 mg 01/07/21 05:40 01/08/21 12:43 Acetaminophen 325 Mg Tab PO 650 mg Q4H PRN Administration Pain MILD(1-3)/Fever >100.5/ROSARIO Amlodipine Besylate 10 mg 01/07/21 10:00 01/10/21 09:36 Amlodipine 10 Mg Tab PO 10 mg DAILY [facility] Administration Atorvastatin Calcium 40 mg 01/07/21 22:00 01/09/21 23:00 Atorvastatin 40 Mg Tab PO 40 mg QHS [facility] Administration Cyclobenzaprine HCl 10 mg 01/07/21 05:46 01/09/21 08:12 Cyclobenzaprine 10 Mg Tab PO 10 mg TID PRN Administration Muscle Spasm Docusate Sodium 100 mg 01/07/21 10:00 01/10/21 09:30 Docusate Sodium 100 Mg Cap PO 100 mg BID [facility] Administration Escitalopram Oxalate 10 mg 01/07/21 10:00 01/10/21 09:30 Escitalopram 10 Mg Tab PO 10 mg DAILY [facility] Administration Famotidine 20 mg 01/07/21 10:00 01/10/21 09:35 Famotidine 20 Mg/2 Ml Inj IV 20 mg BID [facility] Administration Ferrous Sulfate 325 mg 01/07/21 08:00 01/10/21 09:30 Ferrous Sulfate 325 Mg Tab PO 325 mg TID [facility] Administration Fluoxetine HCl 10 mg 01/07/21 10:00 01/10/21 09:34 Fluoxetine 10 Mg Tab PO 10 mg DAILY [facility] Administration Furosemide 40 mg 01/08/21 10:00 01/10/21 09:49 Furosemide 20 Mg Tab PO Not Given QDAY [facility] Furosemide 40 mg 01/10/21 10:16 Furosemide 40 Mg/4 Ml Inj IV 01/10/21 12:00 ONCE NR Heparin Sodium (Porcine) 5,000 unit 01/07/21 06:00 01/10/21 05:09 Heparin 5,000 Unit/1 Ml Vial SUB-Q 5,000 unit Q8HR [facility] Administration Hydrochlorothiazide 25 mg 01/07/21 10:00 01/10/21 09:30 Hydrochlorothiazide 25 Mg Tab PO 25 mg QDAY [facility] Administration Hydromorphone HCl 0.5 mg 01/07/21 05:40 01/08/21 04:04 Hydromorphone 1 Mg/1 Ml Inj IV 0.5 mg Q3H PRN Administration Pain , Severe (7-10) Potassium Phosphate 45 mmol/ 515 mls @ 85 mls/hr 01/10/21 09:30 01/10/21 10:15 Sodium Chloride IV 01/10/21 15:33 85 mls/hr ONCE ONE Administration Labetalol HCl 10 mg 01/07/21 05:40 Labetalol 20 Mg/4 Ml Inj IV Q5MIN PRN to maintain SBP < 180 Levothyroxine Sodium 25 mcg 01/07/21 06:00 01/10/21 05:09 Levothyroxine 25 Mcg Tab PO 25 mcg QAM@0600 [facility] Administration Levothyroxine Sodium 200 mcg 01/07/21 06:00 01/10/21 05:09 Levothyroxine 100 Mcg Tab PO 200 mcg DAILY@0600 [facility] Administration Losartan Potassium 100 mg 01/07/21 10:00 01/10/21 09:31 Losartan 50 Mg Tab PO 100 mg QDAY [facility] Administration Multivit/Ca Carb/B Cmplx/FA/Prenat 1 cap 01/07/21 10:00 01/10/21 09:30 Folic Acid/Vit B Comp W-C 1 Mg (Renal Caps) PO 1 cap QDAY [facility] Administration Nitroglycerin 0.4 mg 01/07/21 05:40 Nitroglycerin 0.4 Mg Tab Subl SL Q5M PRN Chest Pain Ondansetron HCl 4 mg 01/07/21 05:40 01/07/21 14:01 Ondansetron 4 Mg/2 Ml Inj IV 4 mg Q8H PRN Administration Nausea And Vomiting Oxycodone/Acetaminophen 1 tab 01/07/21 05:40 01/10/21 09:33 Oxycodone /Acetaminophen 5-325mg Tab PO 1 tab Q6H PRN Administration Pain, Moderate (4-6) Polyethylene Glycol 17 gm 01/10/21 11:30 Polyethylene Glycol 3350 17 Gm Powder PO BID PRN Constipation Sodium Chloride 10 ml 01/07/21 10:00 01/09/21 22:00 Sodium Chloride 0.9% 10 Ml Flush Syringe IV 10 ml BID [facility] Administration Sodium Chloride 10 ml 01/07/21 05:40 01/08/21 04:07 Sodium Chloride 0.9% 10 Ml Flush Syringe IV 10 ml PRN PRN Administration LINE FLUSH Tramadol HCl 50 mg 01/07/21 05:40 01/09/21 05:51 Tramadol 50 Mg Tab PO 50 mg Q6H PRN Administration Pain, Moderate (4-6)
--- NOTE | 2021-01-10 12:31 | Nuclear Medicine Report ---
APPROVED REPORT Exam: Nuclear Stress Test Indication: Chest pain Room #: [id number] Ht: 5 ft 2 in Wt: 234 lbs BSA: 2.04 m2 BMI: 42.79 Rhythm: NSR Stress Test Details Stress Test: Pharmacologic stress testing performed using 0.4 mg of regadenoson per 5 mL given IV over 10 seconds. Reason for pharmacologic stress test: physical limitation. HR Resting HR: 87 bpm Max HR Achieved: 104 bpm Max Heart Rate (APMHR): 170 bpm Target HR (85% APMHR): 144 bpm % of APMHR: 61 Recovery HR: 86 bpm HR response to stress: Normal HR response to stress BP Resting BP: 84/51 mmHg Max BP: 104/65 mmHg Recovery BP: 77/44 mmHg BP response to stress: Abnormal hypotensive response to stress. ECG Resting ECG: Sinus Rhythm Stress ECG: Sinus Tachycardia ST Change: None Arrhythmia: None Recovery ECG: Sinus Rhythm Recovery ST Change: None Recovery Arrhythmia: None Clinical Reason for Termination: Completed protocol Stress Symptoms: None Stress ECG Conclusion No chest pain, no ST changes with pharmacologic stress. Myocardial perfusion images are pending. NM EXAM: Myocardial Perfusion REST/STRESS Imaging Protocol: Rest Tc-99m/Stress Tc-99m 1 day Resting Data Rest SPECT myocardial perfusion imaging was performed in supine position 45 minutes following the intravenous injection of 10 mCi of Tc-99m Myoview. Time of rest injection: 0700 Pharmacologic Stress Pharmacologic stress test was performed by injecting Regadenoson 0.4 mg IV push followed by the intravenous injection of 28 mCi of Tc-99m Myoview. Time of stress injection: 1000 Gated Stress SPECT was performed 30 minutes after stress injection. The images were gated to evaluate regional wall motion and calculate left ventricular ejection fraction. Study Quality Study: excellent Lung Uptake: Normal Study Data TID = 1.13. Perfusion Wall Motion The rest and stress images show normal left ventricular wall motion. Nuclear Conclusion ECG Findings: negative for ischemia Clinical Findings: negative for ischemia Nuclear Findings: negative for ischemia Left Ventricular Function: normal Risk Study: low Normal rest and stress perfusion images, normal left ventricular systolic function, ejection fraction 68%. Normal study. Conclusion No chest pain, no ST changes with pharmacologic stress. Myocardial perfusion images are pending.
[2021-01-10] MEDS ORDERED: FUROSEMIDE 40 MG/4 ML INJ ONE (20:03)
[2021-01-10] MEDS: FAMOTIDINE 20 MG TAB PO SCH (21:29)
[2021-01-11] MEDS: HEPARIN 5,000 UNIT/1 ML VIAL SUB-Q SCH ×3 (05:39→21:57)
[2021-01-11] MEDS: LEVOTHYROXINE 100 MCG TAB PO SCH (05:39)
[2021-01-11] MEDS: LEVOTHYROXINE 25 MCG TAB PO SCH (05:39)
[2021-01-11 05:52] LABS: BUN/Creatinine Ratio 11; Blood Urea Nitrogen 9 mg/dL (7-17); Calcium 9.9 mg/dL (8.4-10.2); Hemolysis Index 37
[2021-01-11 06:54] LABS: Hematocrit 45.1 % (30.3-42.9); Hemoglobin 14.6 gm/dl (10.1-14.3); Mean Corpuscular HGB Conc 32 % (30-34); Mean Corpuscular Volume 101 fl (79-97); Platelet Count 222 K/mm3 (140-440); Red Blood Count 4.45 M/mm3 (3.65-5.03); Red Cell Distribution Width 16.1 % (13.2-15.2)
[2021-01-11] MEDS: FERROUS SULFATE 325 MG TAB PO SCH ×4 (08:43→21:57)
[2021-01-11] MEDS: amLODIPine 10 MG TAB PO SCH (09:36)
[2021-01-11] MEDS: LOSARTAN 50 MG TAB PO SCH (09:36)
[2021-01-11] MEDS: FAMOTIDINE 20 MG TAB PO SCH ×2 (13:30→21:57)
[2021-01-11] MEDS: ESCITALOPRAM 10 MG TAB PO SCH (13:31)
[2021-01-11] MEDS: DOCUSATE SODIUM 100 MG CAP PO SCH ×2 (13:31→21:57)
[2021-01-11] MEDS: FLUoxetine 10 MG TAB PO SCH (13:31)
[2021-01-11] MEDS: FOLIC ACID/VIT B COMP W-C 1 MG (RENAL CAPS) PO SCH (13:31)
[2021-01-11] MEDS: FUROSEMIDE 20 MG TAB PO SCH (13:31)
[2021-01-11] MEDS: hydroCHLOROthiazide 25 MG TAB PO SCH (13:31)
[2021-01-11] MEDS: oxyCODONE /ACETAMINOPHEN 5-325MG TAB PO PRN (13:32)
--- NOTE | 2021-01-11 14:29 | Cat Scan Report ---
CTA CHEST WITH IV CONTRAST INDICATION: respiratory failure OMNI 350 100 ML. TECHNIQUE: Axial CT images were obtained through the chest after injection of 100 cc Omni 350 IV contrast. 3 julieta ne MIP reconstructions were produced. All CT scans at this location are performed using CT dose reduc tion for ALARA by means of automated exposure control. COMPARISON: None available. FINDINGS: PULMONARY ARTERIES: No pulmonary emboli. Trace amount of nondependent gas within the main pulmonary a rtery related to the injection. THORACIC AORTA: No acute abnormality. HEART: Normal. CORONARY ARTERIES: No significant calcification. PLEURA: No pleural effusion. No pneumothorax. LYMPH NODES: No significant adenopathy. LUNGS: Moderate elevation right hemidiaphragm with linear scar/atelectasis within the right middle an d lower lobes. ADDITIONAL FINDINGS: None. UPPER ABDOMEN: No acute findings. SKELETAL STRUCTURES: No significant osseous abnormality. IMPRESSION: 1. No CT evidence for pulmonary embolism. 2. No acute findings. 3. Moderate elevation right hemidiaphragm with right basilar scar/atelectasis Signer Name: Bipin Garcia MD Signed: 01/11/2021 2:25 PM Workstation Name: [id number]
--- NOTE | 2021-01-11 16:58 | Progress Note ---
Assessment and Plan Assessment and plan: #Acute on chronic hypoxic respiratory failure -Patient with oxygen requirement -patient declined COVID and influenza testing for orthodoxy reasons -Currently on nasal cannula 2 L/min -CTA negative for PE or other acute process, patient with elevated hemidiaphragm -suspect this is a chronic process, patient was supposed to be evaluated out patient for sleep apnea but has not yet followed up -will need Home O2 to prior to discharge #Atypical chest pain -Resolved -Stress test negative -Echocardiogram LVEF 50 to 55% #Headache -CT head negative for acute findings -As needed pain meds -Blood pressure control #Hypertension -Blood pressure at goal -Continue amlodipine, losartan, hydrochlorothiazide, amlodipine and Lasix #Hypothyroidism -Continue levothyroxine #Tobacco dependence -Counseled about tobacco cessation -Patient refused patch Disposition Plan: Home Total Time Spent with Patient (Minutes): 30 minutes History Interval history: No acute events overnight. Reports feeling better. Still requiring oxygen. Has intermittent headache. Hospitalist Physical - Physical exam Narrative exam: GENERAL: Well-developed well-nourished. Sitting on the side of the bed in no acute distress. HEENT: Nasal cannula at 2 L/min CHEST/LUNGS: CTAB on room air HEART/CARDIOVASCULAR: RRR. No murmur, rubs or gallops appreciated. ABDOMEN: +BS. NT/ND. NEURO: No focal motor deficit. Follows all commands. MUSCULOSKELETAL: No joint effusion EXTREMITIES: No cyanosis, clubbing or edema. PSYCH: Cooperative. - Constitutional Vitals: Temp Pulse Resp BP Pulse Ox 98.5 F 112 H 18 116/75 98 01/11/21 12:37 01/11/21 16:47 01/11/21 16:47 01/11/21 12:37 01/11/21 16:47 General appearance: Present: no acute distress HEART Score - HEART Score EKG: Normal Age: 45-65 Risk factors: > 3 risk factors or hx of atherosclerotic disease Troponin: Troponin T < 0.010 ng/mL (0.00-0.029) 01/07/21 12:10 Troponin: < normal limit Results - Labs CBC & Chem 7: 01/11/21 04:43 01/11/21 04:43 Labs: Laboratory Last Values WBC 6.4 K/mm3 (4.5-11.0) 01/11/21 04:43 RBC 4.45 M/mm3 (3.65-5.03) 01/11/21 04:43 Hgb 14.6 gm/dl (10.1-14.3) H 01/11/21 04:43 Hct 45.1 % (30.3-42.9) H D 01/11/21 04:43 MCV 101 fl (79-97) H 01/11/21 04:43 MCH 33 pg (28-32) H 01/11/21 04:43 MCHC 32 % (30-34) 01/11/21 04:43 RDW 16.1 % (13.2-15.2) H 01/11/21 04:43 Plt Count 222 K/mm3 (140-440) 01/11/21 04:43 Lymph % (Auto) 26.2 % (13.4-35.0) 01/08/21 04:39 [place] % (Auto) 8.1 % (0.0-7.3) H 01/08/21 04:39 Eos % (Auto) 0.6 % (0.0-4.3) 01/08/21 04:39 Baso % (Auto) 0.4 % (0.0-1.8) 01/08/21 04:39 Lymph # (Auto) 1.9 K/mm3 (1.2-5.4) 01/08/21 04:39 [place] # (Auto) 0.6 K/mm3 (0.0-0.8) 01/08/21 04:39 Eos # (Auto) 0.0 K/mm3 (0.0-0.4) 01/08/21 04:39 Baso # (Auto) 0.0 K/mm3 (0.0-0.1) 01/08/21 04:39 Seg Neutrophils % 64.7 % (40.0-70.0) 01/08/21 04:39 Seg Neutrophils # 4.6 K/mm3 (1.8-7.7) 01/08/21 04:39 D-Dimer 142.62 ng/mlDDU (0-234) 01/07/21 02:55 ABG pH 7.353 pH Units (7.350-7.450) 01/07/21 03:33 ABG pCO2 54.2 mm Hg 01/07/21 03:33 ABG pO2 59.8 mm Hg (80.0-90.0) L 01/07/21 03:33 ABG HCO3 29.5 mmol/L (20.0-26.0) H 01/07/21 03:33 ABG O2 Saturation Not Reportable 01/07/21 03:33 ABG O2 Content 17.0 (0.0-44) 01/07/21 03:33 ABG Base Excess 2.7 mmol/L (-2.0-3.0) 01/07/21 03:33 ABG Hemoglobin 13.5 gm/dl (12.0-16.0) 01/07/21 03:33 ABG Carboxyhemoglobin Not Reportable 01/07/21 03:33 ABG Methemoglobin Not Reportable 01/07/21 03:33 Oxyhemoglobin Not Reportable 01/07/21 03:33 FiO2 21 % 01/07/21 03:33 Sodium 140 mmol/L (137-145) 01/11/21 04:43 Potassium 3.6 mmol/L (3.6-5.0) 01/11/21 04:43 Chloride 92.9 mmol/L (98-107) L 01/11/21 04:43 Carbon Dioxide 35 mmol/L (22-30) H 01/11/21 04:43 Anion Gap 16 mmol/L 01/11/21 04:43 BUN 9 mg/dL (7-17) 01/11/21 04:43 Creatinine 0.8 mg/dL (0.6-1.2) 01/11/21 04:43 Estimated GFR > 60 ml/min 01/11/21 04:43 BUN/Creatinine Ratio 11 % 01/11/21 04:43 Glucose 97 mg/dL (65-100) 01/11/21 04:43 Hemoglobin A1c 6.0 % (4-6) 01/08/21 04:39 Calcium 9.9 mg/dL (8.4-10.2) 01/11/21 04:43 Phosphorus 3.60 mg/dL (2.5-4.5) 01/08/21 04:39 Magnesium 1.50 mg/dL (1.7-2.3) L 01/08/21 04:39 Total Bilirubin 0.20 mg/dL (0.1-1.2) 01/07/21 02:55 AST 98 units/L (5-40) H 01/07/21 02:55 ALT 52 units/L (7-56) 01/07/21 02:55 Alkaline Phosphatase 97 units/L (35-129) 01/07/21 02:55 Troponin T < 0.010 ng/mL (0.00-0.029) 01/07/21 12:10 NT-Pro-B Natriuret Pep 55.51 pg/mL (0-900) 01/07/21 02:55 Total Protein 7.3 g/dL (6.3-8.2) 01/07/21 02:55 Albumin 3.6 g/dL (3.9-5) L 01/07/21 02:55 Albumin/Globulin Ratio 1.0 % 01/07/21 02:55 Triglycerides 87 mg/dL (2-149) 01/08/21 04:39 Cholesterol 122 mg/dL (50-199) 01/08/21 04:39 LDL Cholesterol Direct 70 mg/dL (50-130) 01/08/21 04:39 HDL Cholesterol 33 mg/dL (40-59) L 01/08/21 04:39 Cholesterol/HDL Ratio 3.69 % 01/08/21 04:39 Nasal Screen MRSA (PCR) Negative (Negative) 01/08/21 09:28 [place]/IV: Voiding Method Toilet Active Medications - Current Medications Current Medications: Generic Name Dose Route Start Last Admin Trade Name Freq PRN Reason Stop Dose Admin Acetaminophen 650 mg 01/07/21 05:40 01/08/21 12:43 Acetaminophen 325 Mg Tab PO 650 mg Q4H PRN Administration Pain MILD(1-3)/Fever >100.5/[place]ARIO Amlodipine Besylate 10 mg 01/07/21 10:00 01/11/21 09:36 Amlodipine 10 Mg Tab PO Not Given DAILY [facility] Atorvastatin Calcium 40 mg 01/07/21 22:00 01/10/21 21:30 Atorvastatin 40 Mg Tab PO 40 mg QHS [facility] Administration Cyclobenzaprine HCl 10 mg 01/07/21 05:46 01/09/21 08:12 Cyclobenzaprine 10 Mg Tab PO 10 mg TID PRN Administration Muscle Spasm Docusate Sodium 100 mg 01/07/21 10:00 01/11/21 13:31 Docusate Sodium 100 Mg Cap PO 100 mg BID [facility] Administration Escitalopram Oxalate 10 mg 01/07/21 10:00 01/11/21 13:31 Escitalopram 10 Mg Tab PO 10 mg DAILY [facility] Administration Famotidine 20 mg 01/10/21 22:00 01/11/21 13:30 Famotidine 20 Mg Tab PO 20 mg BID [facility] Administration Ferrous Sulfate 325 mg 01/07/21 08:00 01/11/21 13:33 Ferrous Sulfate 325 Mg Tab PO 325 mg TID [facility] Administration Fluoxetine HCl 10 mg 01/07/21 10:00 01/11/21 13:31 Fluoxetine 10 Mg Tab PO 10 mg DAILY [facility] Administration Furosemide 40 mg 01/08/21 10:00 01/11/21 13:31 Furosemide 20 Mg Tab PO 40 mg QDAY [facility] Administration Heparin Sodium (Porcine) 5,000 unit 01/07/21 06:00 01/11/21 13:32 Heparin 5,000 Unit/1 Ml Vial SUB-Q 5,000 unit Q8HR [facility] Administration Hydrochlorothiazide 25 mg 01/07/21 10:00 01/11/21 13:31 Hydrochlorothiazide 25 Mg Tab PO 25 mg QDAY [facility] Administration Hydromorphone HCl 0.5 mg 01/07/21 05:40 01/08/21 04:04 Hydromorphone 1 Mg/1 Ml Inj IV 0.5 mg Q3H PRN Administration Pain , Severe (7-10) Labetalol HCl 10 mg 01/07/21 05:40 Labetalol 20 Mg/4 Ml Inj IV Q5MIN PRN to maintain SBP < 180 Levothyroxine Sodium 25 mcg 01/07/21 06:00 01/11/21 05:39 Levothyroxine 25 Mcg Tab PO 25 mcg QAM@0600 [facility] Administration Levothyroxine Sodium 200 mcg 01/07/21 06:00 01/11/21 05:39 Levothyroxine 100 Mcg Tab PO 200 mcg DAILY@0600 [facility] Administration Losartan Potassium 100 mg 01/07/21 10:00 01/11/21 09:36 Losartan 50 Mg Tab PO Not Given QDAY [facility] Multivit/Ca Carb/B Cmplx/FA/Prenat 1 cap 01/07/21 10:00 01/11/21 13:31 Folic Acid/Vit B Comp W-C 1 Mg (Renal Caps) PO 1 cap QDAY [facility] Administration Nitroglycerin 0.4 mg 01/07/21 05:40 Nitroglycerin 0.4 Mg Tab Subl SL Q5M PRN Chest Pain Ondansetron HCl 4 mg 01/07/21 05:40 01/07/21 14:01 Ondansetron 4 Mg/2 Ml Inj IV 4 mg Q8H PRN Administration Nausea And Vomiting Oxycodone/Acetaminophen 1 tab 01/07/21 05:40 01/11/21 13:32 Oxycodone /Acetaminophen 5-325mg Tab PO 1 tab Q6H PRN Administration Pain, Moderate (4-6) Polyethylene Glycol 17 gm 01/10/21 11:30 Polyethylene Glycol 3350 17 Gm Powder PO BID PRN Constipation Sodium Chloride 10 ml 01/07/21 10:00 01/11/21 13:31 Sodium Chloride 0.9% 10 Ml Flush Syringe IV 10 ml BID [facility] Administration Sodium Chloride 10 ml 01/07/21 05:40 01/08/21 04:07 Sodium Chloride 0.9% 10 Ml Flush Syringe IV 10 ml PRN PRN Administration LINE FLUSH Tramadol HCl 50 mg 01/07/21 05:40 01/09/21 05:51 Tramadol 50 Mg Tab PO 50 mg Q6H PRN Administration Pain, Moderate (4-6)
[2021-01-12] MEDS: LEVOTHYROXINE 100 MCG TAB PO SCH (05:54)
[2021-01-12] MEDS: LEVOTHYROXINE 25 MCG TAB PO SCH (05:55)
[2021-01-12] MEDS: HEPARIN 5,000 UNIT/1 ML VIAL SUB-Q SCH (05:55)
--- NOTE | 2021-01-12 07:30 | Discharge Summary ---
Providers - Providers Date of Admission: 01/09/21 08:07 Date of discharge: 01/12/21 Attending physician: SANKET MIRANDA MD 01/07/21 Consult to Cardiac Rehabilitation [CONS] Routine Reason For Exam: Phase I 01/07/21 05:40 Consult to Physician [CONS] Routine Comment: Consulting Provider: KRISTIN JACKSON Physician Instructions: Reason For Exam: cva Occupational Therapy Evaluate and Treat [CONS] Routine Comment: Reason For Exam: Neuro deficits Physical Therapy Evaluation and Treat [CONS] Routine Comment: Reason For Exam: Neuro deficits 01/07/21 11:23 Consult to Physician [CONS] Routine Comment: Consulting Provider: DAVINA HINSON Physician Instructions: Reason For Exam: Blurred vision with headache Primary care physician: [employer] Hospitalization Reason for admission: chest pain and headache Condition: Stable Hospital course: 50-year-old woman with past medical history of tobacco dependence, hypothyroidism, anxiety disorder who presented on 01/07 with complaints of left- sided chest pain, blurred vision and frontal headache x3 days. CT head was unremarkable. Chest x-ray was unremarkable. Initial EKG showed no signs of acute ischemia. Troponin was negative. And D-dimer was negative. Neurology and cardiology were consulted. Echocardiogram showed LVEF of 50 to 55%. Thallium stress test showed normal perfusion. Patient continued to have oxygen requirement. Walk test showed a desaturation to 86% on room air. CT angiogram of the chest was negative for PE and other acute process. Patient was discharged with oxygen and instructions to follow-up for outpatient sleep study. Disposition: 01 HOME / SELF CARE / HOMELESS Final Discharge Diagnosis (Prints w/discharge instructions): Acute hypoxic respiratory failure. atypical chest pain. Headache. Hypertension. Tobacco dependence Time spent for discharge: 20 minutes Core Measure Documentation - Palliative Care Palliative Care/ Comfort Measures: Not Applicable - Core Measures Any of the following diagnoses?: none Exam - Physical Exam Narrative exam: GENERAL: Well-developed well-nourished. Sitting on the side of the bed in no acute distress. HEENT: Nasal cannula at 2 L/min CHEST/LUNGS: CTAB on room air HEART/CARDIOVASCULAR: RRR. No murmur, rubs or gallops appreciated. ABDOMEN: +BS. NT/ND. NEURO: No focal motor deficit. Follows all commands. MUSCULOSKELETAL: No joint effusion EXTREMITIES: No cyanosis, clubbing or edema. PSYCH: Cooperative. - Constitutional Vitals: Temp Pulse Resp BP Pulse Ox 98.2 F 101 H 20 116/80 93 01/12/21 04:29 01/12/21 04:29 01/12/21 04:29 01/12/21 04:29 01/12/21 04:29 Plan Care Plan Goals: Follow-up with primary care within 1 week. Follow-up with cardiology. Please get a referral for sleep study. Assessment: Patient presented with chest pain acute hypoxic respiratory failure. Echocardiogram and stress test were unremarkable. CT angiogram was negative for PE. Patient weaned to 2L of oxygen. Once stable, patient discharged home with oxygen. Follow up with: PRIMARY CARE, [Primary Care Provider] - 3-5 Days Prescriptions: AtorvaSTATin [Lipitor] 40 mg PO QHS 30 Days #30 tablet amLODIPine 10 mg PO DAILY 90 Days #90 tab Furosemide [Lasix TAB] 40 mg PO QDAY 30 Days #30 tablet
[2021-01-12] MEDS: FOLIC ACID/VIT B COMP W-C 1 MG (RENAL CAPS) PO SCH (09:30)
[2021-01-12] MEDS: FLUoxetine 10 MG TAB PO SCH (09:30)
[2021-01-12] MEDS: DOCUSATE SODIUM 100 MG CAP PO SCH (09:30)
[2021-01-12] MEDS: ESCITALOPRAM 10 MG TAB PO SCH (09:30)
[2021-01-12] MEDS: FUROSEMIDE 20 MG TAB PO SCH (09:30)
[2021-01-12] MEDS: hydroCHLOROthiazide 25 MG TAB PO SCH (09:30)
[2021-01-12] MEDS: FAMOTIDINE 20 MG TAB PO SCH (09:31)
[2021-01-12] MEDS: FERROUS SULFATE 325 MG TAB PO SCH ×2 (09:31→09:41)
[2021-01-12] MEDS: LOSARTAN 50 MG TAB PO SCH (09:31)
[2021-01-12] MEDS: oxyCODONE /ACETAMINOPHEN 5-325MG TAB PO PRN (09:31)
[2021-01-12 11:46] VITALS: BP 109/70
[2021-01-12] MEDS: amLODIPine 10 MG TAB PO SCH (14:15)
== END 2021-01-12 14:12 | disposition home or self-care (01) | DRG 189 ==
LOC: ED 01:01 → 4A 05:40 → OBSVTOIN 01-09 08:07
PROVIDERS: ADMIT Hospitalist; ATTEND Student in an Organized Health Care Education/Training Program
PROC: 4A033R1 Measurement of Arterial Saturation, Peripheral, Percutaneous Approach (ICD-10-PCS; principal; 2021-01-07)
DX: J96.21 Acute and chronic respiratory failure with hypoxia (principal); R07.89 Other chest pain; E03.9 Hypothyroidism, unspecified; F41.9 Anxiety disorder, unspecified; I50.9 Heart failure, unspecified; I11.0 Hypertensive heart disease with heart failure; E66.9 Obesity, unspecified; F17.200 Nicotine dependence, unspecified, uncomplicated; Z68.41 Body mass index [BMI] 40.0-44.9, adult; D64.9 Anemia, unspecified; Z88.8 Allergy status to other drugs, medicaments and biological substances; H54.61 Unqualified visual loss, right eye, normal vision left eye
CPT/HCPCS: 36415; 70450; 70544; 70551; 71045; 71046; 71275; 78452; 80048; 80053; 80061; 82803; 83036; 83735; 83880; 84100; 84484; 85025; 85027; 85379; 87641; 93005; 93017; 93306; 94760; G0378; A9270-GY; A9502; J1170; J1200; J1644; J1940; J2270; J2405; J2765; J2785; J7040; J7042; J7120; Q0164; Q9967

== ENCOUNTER 2021-11-12 11:00 | Outpatient (CLI) | payer MEDICAID | END 2021-11-12 11:01 | disposition home or self-care (01) | LOC: SLR 11:00 | PROVIDERS: ATTEND Internal Medicine | DX: G47.33 Obstructive sleep apnea (adult) (pediatric) (principal) | CPT/HCPCS: 95811 ==